=== PATIENT | male | born 1935 | race Two or more races ===

== ENCOUNTER → 2017-06-08 | Outpatient (CLI) | payer OTHER ==
--- NOTE | 2017-06-08 12:40 | REP ---
Bilateral lower extremity deep vein duplex ultrasound and bilateral lower extremity venous reflux ultrasound: Bilateral lower extremity deep vein duplex ultrasound: The deep veins demonstrate normal compression, normal Doppler color flow and normal Doppler waveforms with respiration augmentation at multiple levels from the popliteal veins to the common femoral veins. Impression: There is no deep vein thrombus on the right on the left. The deep veins lower extremity reflux analysis: Right lower extremity: There is reflux in the common femoral vein, greater saphenous vein/femoral vein junction, mid greater saphenous vein and in the deep veins at the proximal, mid and distal superficial femoral vein. popliteal There is no reflux in the anterior accessory greater saphenous vein, greater saphenous vein at the knee, popliteal vein or lesser saphenous vein. Left lower extremity: There is reflux in the common femoral vein, greater saphenous vein/femoral vein junction, and proximal mid and distal superficial femoral vein. There is no reflux in the anterior accessory greater saphenous vein, greater saphenous vein at the mid thigh, greater saphenous vein at the knee, popliteal vein or lesser saphenous vein. Signed by Vj Paul MD 06/08/2017 12:31 P
== END ==
LOC: M RAD 10:17
PROVIDERS: ATTEND Surgery
DX: I87.311 Chronic venous hypertension (idiopathic) with ulcer of right lower extremity (principal)

== ENCOUNTER 2018-09-30 23:32 | Inpatient (IN) | payer MEDICARE, OTHER ==
[~2018-09-30] VITALS: Ht 165.1 cm; Wt 111.8 kg
[2018-09-30] MEDS ORDERED: SIMB1SUS OU (23:59)
[2018-09-30] MEDS ORDERED: CO Q100C10 PO (23:59)
[2018-09-30] MEDS ORDERED: NATU400T PO (23:59)
[2018-09-30] MEDS ORDERED: ATEN25TA PO (23:59)
[2018-09-30] MEDS ORDERED: VITA200048 PO (23:59)
[2018-09-30] MEDS ORDERED: TIMOXEOPD OU (23:59)
[2018-09-30] MEDS ORDERED: SPIR-10 PO (23:59)
[2018-09-30] MEDS ORDERED: IRBESAR/HCTZ (23:59)
[2018-09-30] MEDS ORDERED: BIMA01SOL OU (23:59)
[2018-10-01] MEDS ORDERED: IRBE300T12 PO (00:46)
[2018-10-01] MEDS ORDERED: IPRATROPIUM 0.5MG/ALBUTEROL 2.5MG INH SOL UD 3ML (DUONEB)(J7620) NEB ONE (01:15)
--- NOTE | 2018-10-01 01:25 | REPVR ---
EXAM: CT Head Without Contrast EXAM DATE/TIME: 10/01/2018 1:06 AM CLINICAL HISTORY: 83 years old, male; Signs and symptoms; Other: Syncope TECHNIQUE: Axial computed tomography images of the head/brain without contrast. All CT scans at this facility use at least one of these dose optimization techniques: automated exposure control; mA and/or kV adjustment per patient size (includes targeted exams where dose is matched to clinical indication); or iterative reconstruction. COMPARISON: No relevant prior studies available. FINDINGS: Brain: Subtle, patchy areas of hypoattenuation in the periventricular and subcortical white matter, nonspecific but suggestive of mild chronic small vessel ischemic disease. No CT evidence of acute intracranial hemorrhage or acute territorial infarction. No significant mass effect or midline shift. Basal cisterns patent. Ventricles: Prominence of the cortical sulci, cisterns and ventricular system, consistent with cerebral and cerebellar volume loss. Bones/joints: No acute osseous abnormality. Sinuses: Mild ethmoid mucosal thickening. Mastoid air cells: Grossly unremarkable. Soft tissues: Left high frontal scalp lipoma. Vasculature: Calcific atherosclerotic disease in the cavernous internal carotid arteries, as well as the vertebro-basilar system. IMPRESSION: 1. No CT evidence of acute intracranial pathology. 2. Additional findings, as above. Electronically signed by: Rambo Robbins On 10/01/2018 01:25:29 AM
[2018-10-01 01:35] LABS: ABG BASE EXCESS -0.8 (-2.0-2.0); ABG HCO3 27.1 MEQ/L (22.0-26.0); ABG O2 SATURATION 99.5 % (95.0-99.0); ABG PARTIAL PRESSURE CO2 59.2 mmHg (35.0-45.0); ABG PARTIAL PRESSURE O2 276.3 mmHg (75.0-100.0); ABG STANDARD HCO3 23.9 MEQ/L (22.0-26.0); ABG TOTAL CO2 28.9 MEQ/L (23.0-31.0); ABG pH (ARTERIAL) 7.279 UNITS (7.350-7.450)
[2018-10-01 01:39] LABS: BASO # 0.1 10^3/uL (0.0-0.2); BASO % 0.6 % (0.0-1.0); EOS # 0.1 10^3/uL (0.0-0.50); EOS % 0.8 % (0.0-3.0); HEMATOCRIT 39.6 % (42.0-52.0); HEMOGLOBIN 13.4 g/dl (13.5-17.5); LYMPH # 1.1 10^3/uL (1.5-4.5); LYMPH % 12.6 % (24.0-44.0); MEAN CORPUSCULAR HEMOGLOBIN 34.5 pg (27.0-33.0); MEAN CORPUSCULAR HGB CONC 33.8 g/dl (32.0-36.5); MEAN CORPUSCULAR VOLUME 102.1 fl (80.0-96.0); MONO # 0.7 10^3/uL (0.0-0.8); MONO % 7.6 % (0.0-5.0); NEUTROPHILS # 6.7 10^3/uL (1.8-7.7); NEUTROPHILS % 77.9 % (36.0-66.0); PLATELET COUNT, AUTOMATED 209 10^3/uL (150-450); RED BLOOD COUNT 3.88 10^6/uL (4.30-6.10); WHITE BLOOD COUNT 8.6 10^3/uL (4.0-10.0)
[2018-10-01 02:09] LABS: INFLUENZA A AMPLIFICATION NEGATIVE (NEGATIVE); INFLUENZA B AMPLIFICATION NEGATIVE (NEGATIVE)
[2018-10-01 03:29] LABS: CALCIUM LEVEL 9.1 MG/DL (8.8-10.2); CREATININE FOR GFR 1.29 MG/DL (0.70-1.30); GLOMERULAR FILTRATION RATE 56.4 (>35); MB/CK RELATIVE INDEX 2.25 (< OR =4); POTASSIUM SERUM 4.6 MEQ/L (3.5-5.1); THYROID STIMULATING HORMONE 1.86 uIU/ML (0.358-3.740); TROPONIN I 0.04 NG/ML (< 0.10)
[2018-10-01 03:44] LABS: ABG BASE EXCESS -2.3 (-2.0-2.0); ABG HCO3 24.5 MEQ/L (22.0-26.0); ABG O2 SATURATION 96.3 % (95.0-99.0); ABG PARTIAL PRESSURE CO2 50.2 mmHg (35.0-45.0); ABG PARTIAL PRESSURE O2 92.1 mmHg (75.0-100.0); ABG STANDARD HCO3 22.6 MEQ/L (22.0-26.0); ABG TOTAL CO2 26.1 MEQ/L (23.0-31.0); ABG pH (ARTERIAL) 7.307 UNITS (7.350-7.450)
[2018-10-01] MEDS ORDERED: ISOVUE-370 76% 100ML VIAL (Q9967) As Ordered ONE (04:13)
--- NOTE | 2018-10-01 05:07 | REPVR ---
EXAM: CT Chest With Contrast EXAM DATE/TIME: 10/01/2018 4:23 AM CLINICAL HISTORY: 83 years old, male; Pain; Chest pain; Additional info: Hypoxia TECHNIQUE: Axial computed tomography images of the chest with intravenous contrast. All CT scans at this facility use at least one of these dose optimization techniques: automated exposure control; mA and/or kV adjustment per patient size (includes targeted exams where dose is matched to clinical indication); or iterative reconstruction. Coronal and sagittal reformatted images were created and reviewed. MIP reconstructed images were created and reviewed. CONTRAST: 75 ml of iso 370 administered intravenously. COMPARISON: CR Chest, 2 view PA, Lat 10/01/2018 1:03 AM FINDINGS: Lungs: Bronchial wall thickening and mucous plugging are seen within the bilateral lower lobes. Lung volumes are relatively shallow, and appearance of the airways seems to indicate imaging during expiration. There is mild groundglass opacity in the more dependent portions of the upper lobes bilaterally and there is volume loss, ground glass opacity, and small amounts of consolidation in the bilateral lower lobes. Pleural space: There are no pleural effusions present. No pneumothorax is seen. Heart: There is mild cardiomegaly. Mediastinum: There is retained fluid within the esophagus. Pulmonary arteries: The pulmonary arteries demonstrate moderate central enlargement, consistent with moderate pulmonary hypertension. The pulmonary trunk measures 4.2 cm. No filling defects are seen to indicate an acute pulmonary embolism. Aorta: The aorta demonstrates moderate atherosclerotic calcification. The ascending aorta is mildly dilated at 4.1 cm. Lymph nodes: No lymphadenopathy is seen. Bones/joints: Advanced degenerative changes both shoulders are noted. Degenerative endplate changes are seen at multiple levels in the visualized spine. No suspicious osseous lesions. No acute fractures or dislocations. Soft tissues: Unremarkable. Liver: There is a 3.3 cm cyst in the right lobe of the liver. Peripheral calcifications are seen in the right lobe of the liver. Gallbladder and bile ducts: The gallbladder is normal with no stones or biliary ductal dilation. Pancreas: There is diffuse, benign fatty infiltration of the pancreas. Spleen: The spleen is normal. Kidneys and ureters: There is a 3.0 cm lesion in the right kidney which is homogeneous in density, measuring slightly higher density than simple fluid at 30 Hounsfield units. This is likely a proteinaceous cyst. Moderate diffuse thinning of the renal parenchyma is seen, indicating atrophy. IMPRESSION: 1. Bronchial wall thickening and mucous plugging in the bilateral lower lobes. Volume loss, ground glass opacity and mild patchy consolidation in the bilateral lower lobes probably due to a combination of airway inflammation, pneumonia, and atelectasis. 2. Enlargement of the ascending aorta, measuring 4.1 cm. 3. Enlargement of central pulmonary arteries, consistent with pulmonary hypertension. 4. 3.0 cm lesion in the right kidney measuring higher density than simple fluid but is homogeneous and probably a proteinaceous cyst. No followup recommended. Electronically signed by: Shasta Rasheed On 10/01/2018 05:06:58 AM
[2018-10-01] MEDS ORDERED: FUROSEMIDE 40 MG/4 ML VIAL (J1940) IV ONE (05:15)
[2018-10-01] MEDS ORDERED: cefTRIAXone SOD 1 GM in D5W MINI-BAG PLUS 50 ML IV ONE (05:30)
[2018-10-01] MEDS ORDERED: AZITHROMYCIN INJ 500 MG, VIAL MATE ADAPTER 1 EACH in D5W 250 ML IV ONE (05:30)
[2018-10-01] MEDS ORDERED: FISH7.5C PO (06:09)
[2018-10-01] MEDS ORDERED: ACETAMINOPHEN TAB 650MG DOSE (2X325MG) PO PRN (06:15)
--- NOTE | 2018-10-01 06:49 | HPEPDOC ---
[facility] Medical History & Physical Date of Admission Oct 01, 2018 Other Provider Admitting/dictating: Risa Chiang M.D. Attending Physician: ASHLEY SHEARER MD History and Physical CHIEF COMPLAINT: Generalized weakness, Feeling unwell x 1 week, cough with shorthness of breath x 1week HISTORY OF PRESENT ILLNESS: Patient is an 83-year-old morbidly obese man with medical history significant for glaucoma, hypertension, and arthritis. He had remained in his usual state of health until about a week ago developed cough productive of yellowish sputum, non-concerning. However, he noticed progressive shortness of breath, now worsened to the point of orthopnea. There is also associated feeling of unwell for the past 1 week culminating in mechanical fall twice yesterday morning without any mention of loss of consciousness. No prior warning signs of dizziness, near syncope or syncope. He reports that his cough has persisted necessitating the need for further medical evaluation. He refers subjective fever with chills. He denies any recent sick contacts. No nausea, vomiting, no associated chest pain or palpitations. No change in his bowel or urinary habits. Patient was evaluated with a chest x-ray which reveals bilateral lower lobe infiltrates. A CT scan consistent with pneumonia. Patient received IV Lasix 40 mg and hospitalist called to continue patient care. PAST MEDICAL HISTORY: Per HPI PAST SURGICAL HISTORY: 1. Broken wrist. 2. Hernia repair. 3. Knee replacement in 2000. SOCIAL HISTORY: Denies smoking. He quit smoking about 12 years. Denies illicit drug use. Occasional alcohol indulgence. FAMILY HISTORY: Father: Mother: at age 99, was diagnosed with psychiatric conditions Siblings: One brother diagnosed with hypertension Children: One son and one daughter. Daughter is diagnosed with hypertension ALLERGIES: Please see below. REVIEW OF SYSTEMS: No fever, no chills. No weight loss. No hemoptysis. No chest pain, no palpitations. No change in bowel or urinary habits. He refers cough productive of yellowish sputum and shortness of breath. Other systems reviewed, negative. 14 point review of system was done. HOME MEDICATIONS: Please see below. PHYSICAL EXAMINATION: VITAL SIGNS: Temperature 98.3, pulse 64, respiratory rate 20, blood pressure 134/69, pulse oximetry 98% on 2L O2. GENERAL APPEARANCE: Elderly man, lying calmly in bed, not in any apparent distress. He is not pale, anicteric and afebrile HEENT: Atraumatic. Neck: Supple. LUNGS: Mild expiratory wheeze on auscultation bilaterally. CARDIOVASCULAR: S1 and 2 heard, no murmurs, rubs or gallops. ABDOMEN: Obese, soft, not tender, not distended. Bowel sounds normoactive. MUSCULOSKELETAL: Apparently within normal limits. EXTREMITIES: No pedal edema, 2+ bilateral pedal pulses noted. NEUROLOGICAL: Awake, alert, oriented 3. PSYCHIATRIC: Normal affect LABORATORY DATA: See below. IMAGING: CT head without contrast: No CT evidence of acute intracranial pathology. There is calcific atherosclerotic disease in the cavernous internal carotid arteries, as well as the vertebro- basilar system. Chest x-ray: Bilateral lower lobe (infiltrates might take). CT chest: Bronchial wall thickening and mucous plugging in the bilateral lower lobes volume loss ground glass opacity and mild patchy consolidation in the bilateral lower lobes, probably due to a combination of airway inflammation pneumonia and atelectasis. Enlargement of the ascending aorta measuring 4.1 cm. Enlargement of central pulmonary arteries consistent with pulmonary hypertension. 3 cm lesion in the right kidney measuring higher density than simple fluid, but is homogeneous, probably proteinaceous cyst. No follow-up recommended. EKG: Normal sinus rhythm, no acute ST or T-wave changes. Possible first-degree AV block. MICROBIOLOGY: Please see below. ASSESSMENT: 83 year old man with history of CHF, glaucoma, arthritis, comes in with a week a week's duration of feeling of unwell as well as productive cough with shortness of breath. History significant for a fall without loss of consciousness yesterday morning. Physical exam is unremarkable, labs unremarkable. However, imaging consistent findings with pneumonia. DIAGNOSES: 1. Acute hypoxic respiratory failure. 2. Pneumonia. 3. Physical deconditioning. SECONDARY DIAGNOSIS: CHF . PLAN: 1. I will admit patient to the PCU under care of Dr. Shearer 2. Shortness of breath/Acute hypoxic respiratory failure, likely secondary to pneumonia. I'll order ceftriaxone 1 mg stat IV and continue this daily, Zithromax 500 mg IV at least for 24hours change to po antibiotics and will continue Zithromax by mouth 250 mg daily for the next 4 days. Will continue O2 supplementation. DuoNeb nebulizations when necessary shortness of breath. Patient noted with expiratory wheezing on exam, Will give prednisone 20 mg daily. 3. CHF appears stable at this time. repeat BNP 4. Physical deconditioning: PT eval and treatment as tolerated. 5. Follow daily BMP/CBC. 6. I will order echocardiogram to determine his ejection fraction with this admission. 7. Will resume outpatient medications. He may also benefit from adding expectorant to his regimen while on admission. 8. GI prophylaxis. Pantoprazole. 9. DVT prophylaxis subcutaneous heparin 5000 international units every 12 hours 10. I will screen for diabetes in this morbidly obese man. 11. Further management will be per patient's clinical course. Vital Signs Vital Signs Date Time Temp Pulse Resp B/P (MAP) Pulse Ox O2 Delivery O2 Flow Rate FiO2 10/01/18 04:33 98.3 10/01/18 04:32 64 10/01/18 04:17 20 98 Nasal Cannula 10/01/18 03:01 180/82 (114) 10/01/18 01:32 2.0 Laboratory Data Labs 24H Laboratory Tests 2 10/01/18 01:15: Immature Granulocyte % (Auto) 0.5, White Blood Count 8.6, Red Blood Count 3.88L, Hemoglobin 13.4L, Hematocrit 39.6L, Mean Corpuscular Volume 102.1H, Mean Corpuscular Hemoglobin 34.5H, Mean Corpuscular Hemoglobin Concent 33.8, Red Cell Distribution Width 13.1, Platelet Count 209, Neutrophils (%) (Auto) 77.9H, Lymphocytes (%) (Auto) 12.6L, Monocytes (%) (Auto) 7.6H, Eosinophils (%) (Auto) 0.8, Basophils (%) (Auto) 0.6, Neutrophils # (Auto) 6.7, Lymphocytes # (Auto) 1.1L, Monocytes # (Auto) 0.7, Eosinophils # (Auto) 0.1, Basophils # (Auto) 0.1, Nucleated Red Blood Cells % (auto) 0.0, Anion Gap 7L, Glomerular Filtration Rate 56.4, Lactic Acid Level 0.8, Blood Urea Nitrogen 32H, Creatinine 1.29, Sodium Level 147H, Potassium Level 4.6, Chloride Level 112H, Carbon Dioxide Level 28, Calcium Level 9.1, Total Creatine Kinase 222, Creatine Kinase MB 5.0H, Creatine Kinase MB Relative Index 2.25, Troponin I 0.04, DC-Gen-J-Type Natriuretic Peptide 2397H, Thyroid Stimulating Hormone (TSH) 1.860, Influenza Type A (RT- PCR) NEGATIVE, Influenza Type B (RT-PCR) NEGATIVE 10/01/18 01:20: Blood Gas Bicarbonate Standard 23.9, Arterial Blood pH 7.279L, Arterial Blood Partial Pressure CO2 59.2H, Arterial Blood Partial Pressure O2 276.3H, Arterial Blood Total CO2 28.9, Arterial Blood HCO3 27.1H, Arterial Blood Base Excess - 0.8, Arterial Blood Oxygen Saturation 99.5H 10/01/18 03:27: Blood Gas Bicarbonate Standard 22.6, Arterial Blood pH 7.307L, Arterial Blood Partial Pressure CO2 50.2H, Arterial Blood Partial Pressure O2 92.1, Arterial Blood Total CO2 26.1, Arterial Blood HCO3 24.5, Arterial Blood Base Excess - 2.3L, Arterial Blood Oxygen Saturation 96.3 CBC/BMP Laboratory Tests 10/01/18 01:15 Red Blood Count 3.88 L, Mean Corpuscular Volume 102.1 H, Mean Corpuscular Hemog lobin 34.5 H, Mean Corpuscular Hemoglobin Concent 33.8, Red Cell Distribution Width 13.1, Neutrophils (%) (Auto) 77.9 H, Lymphocytes (%) (Auto) 12.6 L, Monocytes (%) (Auto) 7.6 H, Eosinophils (%) (Auto) 0.8, Basophils (%) (Auto) 0.6, Neutrophils # (Auto) 6.7, Lymphocytes # (Auto) 1.1 L, Monocytes # (Auto) 0.7, Eosinophils # (Auto) 0.1, Basophils # (Auto) 0.1, Calcium Level 9.1, Total Creatine Kinase 222 Home Medications Scheduled (Simbrinza 1-0.2 %) 1 Yane Yane, 1 DROP OU BID (Co Q 10) 100 Mg Cap, 100 MG PO DAILY (Irbesartan/Hydrochlorothi 300-12.5 mg) 1 Tab Tab, 1 TAB PO DAILY Alpha Tocopheryl Acid Succinat (Vitamin E) 400 Unit Tab, 400 UNIT PO DAILY Atenolol (Atenolol) 25 Mg Tab, 25 MG PO DAILY Bimatoprost (Lumigan) 50 Drop/2.5 Ml Zofia, 1 DROP OU QHS [place] 3 Polyunsat Fatty Acids (Fish Oil 1000 mg) 1 Cap Cap, 1 CAP PO DAILY Spironolactone (Spironolactone) 25 Mg Tab, 25 MG PO DAILY Timolol Maleate (Timolol Maleate 0.25% Opth GFS) 100 Drop/5 Ml Zofia, 1 DROP OU QAM Allergies Coded Allergies: Flu Virus Vaccine (Verified Allergy, Unknown, 09/30/18) RISA CHIANG MD Oct 01, 2018 06:03
[2018-10-01] MEDS ORDERED: guaiFENesin SYRUP 200 MG/10 ML UDC PO PRN (07:00)
--- NOTE | 2018-10-01 07:32 | REP ---
Clinical: Cough. Technique: PA and lateral. Comparison: None. Findings: Cardiomegaly is appreciated. Mild basilar atelectasis and possible small pleural effusion cannot be excluded. No pneumothorax. Skeletal structures demonstrate degenerative changes primarily involving the thoracic spine and bilateral shoulders. Atherosclerotic disease to the thoracic aorta noted. Impression: Cardiomegaly and mild bibasilar atelectasis along with possible small left pleural effusion. Electronically Signed by Dean Lombardi MD 10/01/2018 07:24 A
[2018-10-01] MEDS: PANTOPRAZOLE 40MG TAB (PROTONIX) PO SCH (08:22)
[2018-10-01] MEDS: HEPARIN SOD (PORCINE) 5000 UNITS/ML VIAL SQ SCH ×2 (08:22→21:02)
[2018-10-01] MEDS ORDERED: predniSONE 20 MG TAB PO SCH (09:00)
[2018-10-01] MEDS ORDERED: ATENOLOL 25 MG TAB PO SCH (09:00)
[2018-10-01] MEDS ORDERED: TIMOLOL MALEATE 0.25% OPHTH SOLN 5 ML OU SCH (09:00)
[2018-10-01] MEDS ORDERED: ATROPINE SULF 1MG/10ML SYRINGE (J0461) IV PRN ×2 (13:45→15:30)
--- NOTE | 2018-10-01 15:30 | IPNPDOC ---
Text Note Date of Service The patient was seen on 10/01/18. NOTE Patient seen and examined at the bedside earlier today. Called by the bedside nurse as the patient was noted to have episodes of symptomatic bradycardia (HR in 30s) this afternoon. His HR is currently in the 50s. Original EKG revealed 1st degree AV block, HR of 61. Repeat EKG ordered. This is likely 2/2 to the patient taking Atenolol, which has been discontinued. Atropine ordered, 0.5mg IV q5mp for up to 3mg. I have asked the nurse to place transcutaneous pacer pads on the patient and we will transfer the patient to ICU at this time. We will cont to monitor the patient on Telemetry in the ICU. If his episodes of symptomatic bradycardia persist, we will reach out to Cardiology for further evaluation/and need for more definitive pacing. VS,Fishbone, I+O VS, Fishbone, I+O Laboratory Tests 10/01/18 01:15 Red Blood Count 3.88 L, Mean Corpuscular Volume 102.1 H, Mean Corpuscular Hemoglobin 34.5 H, Mean Corpuscular Hemoglobin Concent 33.8, Red Cell Distribution Width 13.1, Neutrophils (%) (Auto) 77.9 H, Lymphocytes (%) (Auto) 12.6 L, Monocytes (%) (Auto) 7.6 H, Eosinophils (%) (Auto) 0.8, Basophils (%) (Auto) 0.6, Neutrophils # (Auto) 6.7, Lymphocytes # (Auto) 1.1 L, Monocytes # (Auto) 0.7, Eosinophils # (Auto) 0.1, Basophils # (Auto) 0.1, Calcium Level 9.1, Total Creatine Kinase 222 Vital Signs Date Time Temp Pulse Resp B/P (MAP) Pulse Ox O2 Delivery O2 Flow Rate FiO2 10/01/18 13:01 144/65 (91) 10/01/18 13:00 55 96 Nasal Cannula 2.0 10/01/18 12:40 98.8 20 ASHLEY SHEARER MD Oct 01, 2018 15:30
[2018-10-01 16:11] LABS: HEMATOCRIT 40.4 % (42.0-52.0); HEMOGLOBIN 13.5 g/dl (13.5-17.5); MEAN CORPUSCULAR HEMOGLOBIN 34.5 pg (27.0-33.0); MEAN CORPUSCULAR HGB CONC 33.4 g/dl (32.0-36.5); MEAN CORPUSCULAR VOLUME 103.3 fl (80.0-96.0); PLATELET COUNT, AUTOMATED 222 10^3/uL (150-450); RED BLOOD COUNT 3.91 10^6/uL (4.30-6.10); WHITE BLOOD COUNT 8.2 10^3/uL (4.0-10.0)
[2018-10-01 16:32] LABS: CREATININE FOR GFR 1.4 MG/DL (0.70-1.30); GLOMERULAR FILTRATION RATE 51.3 (>35); MAGNESIUM LEVEL 2.3 MG/DL (1.8-2.4); POTASSIUM SERUM 4.7 MEQ/L (3.5-5.1)
[2018-10-01 17:26] VITALS: BP 112/70
[2018-10-01 20:00] VITALS: BP 169/79
[2018-10-01] MEDS ORDERED: **NOTE PATIENT COMMENT** MISC XX SCH (21:00)
[2018-10-01] MEDS: SIMBRINZA OU SCH (21:02)
[2018-10-01] MEDS: LATANOPROST 0.005% OPHTH SOLN 2.5 ML OU SCH (21:03)
[2018-10-01 22:00] VITALS: BP 152/72
[2018-10-02] VITALS (9 sets, daily range): BP systolic 121–170; BP diastolic 58–77
[2018-10-02 04:55] LABS: HEMATOCRIT 38.6 % (42.0-52.0); HEMOGLOBIN 12.9 g/dl (13.5-17.5); MEAN CORPUSCULAR HEMOGLOBIN 33.9 pg (27.0-33.0); MEAN CORPUSCULAR HGB CONC 33.4 g/dl (32.0-36.5); MEAN CORPUSCULAR VOLUME 101.6 fl (80.0-96.0); PLATELET COUNT, AUTOMATED 216 10^3/uL (150-450); WHITE BLOOD COUNT 9.2 10^3/uL (4.0-10.0)
[2018-10-02 05:17] LABS: CALCIUM LEVEL 9.1 MG/DL (8.8-10.2); CREATININE FOR GFR 1.26 MG/DL (0.70-1.30); GLOMERULAR FILTRATION RATE 57.9 (>35); POTASSIUM SERUM 4.4 MEQ/L (3.5-5.1)
[2018-10-02] MEDS: cefTRIAXone SOD 1 GM in D5W MINI-BAG PLUS 50 ML IV SCH (06:09)
[2018-10-02] MEDS: PANTOPRAZOLE 40MG TAB (PROTONIX) PO SCH (08:53)
[2018-10-02] MEDS: AZITHROMYCIN 250 MG TAB PO SCH (08:53)
[2018-10-02] MEDS: SPIRONOLACTONE 25 MG TAB PO SCH (08:53)
[2018-10-02] MEDS: HEPARIN SOD (PORCINE) 5000 UNITS/ML VIAL SQ SCH ×2 (08:53→20:50)
[2018-10-02] MEDS: SIMBRINZA OU SCH ×2 (08:54→20:50)
[2018-10-02] MEDS: amLODIPine 5 MG TAB PO SCH (11:40)
[2018-10-02] MEDS: guaiFENesin ER 600 MG TAB PO SCH ×2 (13:51→20:50)
--- NOTE | 2018-10-02 13:56 | IPN ---
DATE: 10/02/2018 SUBJECTIVE: Patient is seen and examined in the room today. Patient denies any chest pain, palpitation. Denies any fever or chills. The patient was noted to have a recurrence of bradycardia yesterday night. Average heart rate was around 40s. Denies any other acute complaints. OBJECTIVE: VITAL SIGNS: Temperature 98.4, pulse 46, respiration 20, blood pressure 153/66, pulse ox 99% on 2 liters nasal cannula. GENERAL: Fatigued. No sign of acute stress. Alert and awake in appearance. HEENT: Normocephalic, atraumatic. Extraocular muscles grossly intact. CARDIOVASCULAR: Bradycardic, Positive S1, S2. LUNGS: Clear to auscultation bilaterally. ABDOMEN: Soft, nontender, nondistended. Bowel sounds present. EXTREMITIES: No peripheral edema. LABORATORY DATA: WBC 9.3, hemoglobin 12.9, hematocrit 38.6, platelet count 216. Sodium 145, potassium 4.4, chloride 110, carbon dioxide 31, BUN 36, creatinine 1.26, GFR 57.9, fasting glucose 100, calcium 9.1. ASSESSMENT/PLAN: 1. Symptomatic bradycardia: The patient is monitored in the intensive care unit (ICU). The lowest heart rate was around high 30s. Later patient maintained an average heart rate around 50s. Yesterday patient required 1000 IV atropine for symptomatic bradycardia. Atenolol has been discontinued, the last dose of atenolol was on October 01, 2018 in the morning. The patient Timolol eye drops were also discontinued. The patient will be monitored in the progressive care unit (PCU). 2. Acute hypoxia hypercapnic respiratory failure: Patient came in with chief complaint of not feeling well and complained of shortness of breath. Arterial blood gases (ABG) from admission were reviewed. Patient is hypercapnic hypoxic respiratory failure. CT of the chest was performed which demonstrated mucous plugging in the bilateral lower lobe. Mild patchy infiltrate. Suspect complication of airway inflammation pneumonia, atelectasis. Incentive spirometry ordered. Will follow with sputum cultures. The patient did complain of a yellow sputum production which is not normal for him. The patient is on empiric antibiotics. Currently we are treating patient for his bradycardia. 3. Hypertension: On Norvasc, spironolactone. 4. Deep venous thrombosis (DVT): Prophylaxis on heparin. [facility]
--- NOTE | 2018-10-02 17:10 | ECHO ---
DATE OF PROCEDURE: 10/02/2018 REFERRING PHYSICIAN: Paul Jonas MD INDICATION: Dyspnea. HEIGHT: 165 cm WEIGHT: 110 kg DIMENSIONS: IVS: 1.0 LV: 5.7 LVPW: 1.1 LA: 4.4 Aorta: 3.7 IVC: 1.9 Left atrial volume index: 38 Mitral E wave velocity: 139, A wave: 127 E prime septal: 7.8 E prime lateral: 6.1 FINDINGS: The study is of fair technical quality. Left ventricle is borderline enlarged but has grossly normal LV systolic function. I do not appreciate any segmental wall motion abnormalities based on limited views. I estimate ejection fraction (EF) around 65-70%. Right ventricle does not appear grossly enlarged. Left atrium is moderately enlarged. Right atrium was poorly seen, but appears grossly normal. Aortic valve is mildly sclerotic, but mobility is preserved. There are also mild degenerative abnormalities of mitral valve with mitral annular calcifications. Tricuspid and pulmonic valves appear normal. No pericardial effusion is noted. Inferior vena cava is in upper limits of normal size. Aortic root is normal. Aortic arch and abdominal aorta were not seen. Doppler interrogation reveals no aortic stenosis and no insufficiency. There is mild mitral and mild tricuspid insufficiency. Calculated pulmonary artery pressure is at minimum in high 30s corresponding to mild pulmonary hypertension. Mild pulmonic insufficiency is also present. Mitral inflow pattern and tissue Doppler imaging of mitral annulus reveal grade 2 diastolic dysfunction. CONCLUSIONS 1. Study is of fair technical quality. 2. Borderline dilated left ventricle with normal LV systolic function and grade 2 diastolic dysfunction. 3. No hemodynamically significant valvular disease. 4. Suggestive of normal central venous pressure and at least mild pulmonary hypertension. COMMENTS: Subacute bacterial endocarditis (SBE) prophylaxis is not recommended.
--- NOTE | 2018-10-02 20:49 | ECGEPIP ---
Stationary ECG Study [facility] - ED Test Date: 2018-10-01 Pat Name: CONCHA KHAN Department: Room: [place] [address] Gender: M Security System Installer: hannah : 1935 Requested By: KERLINE Silva Order Number: [id number] Reading MD: Karlo Fernandez Measurements Intervals [place] Rate: 61 P: -83 HI: 258 QRS: -41 QRSD: 113 T: 22 QT: 408 QTc: 411 Interpretive Statements SINUS RHYTHM WITH FIRST DEGREE AV BLOCK MARKED LEFT AXIS DEVIATION VOLTAGE CRITERIA FOR LVH POSSIBLE LATERAL MYOCARDIAL INFARCTION, OF INDETERMINATE AGE NO PRIORS FOR COMPARISON Electronically Signed On 10-02-2018 20:49:08 EST by Karlo Fernandez
[2018-10-02] MEDS: LATANOPROST 0.005% OPHTH SOLN 2.5 ML OU SCH (20:50)
[2018-10-03] VITALS (8 sets, daily range): BP systolic 120–171; BP diastolic 58–77
--- NOTE | 2018-10-03 00:33 | ECGEPIP ---
Stationary ECG Study [facility] Test Date: 2018-10-01 Pat Name: CONCHA KHAN Department: Room: [place] [address] Gender: M Manager Retirement: joanna GIBSONB: 1935 Requested By: ASHLEY SHEARER Order Number: [id number] Reading MD: Sherif Oro Measurements Intervals [place] Rate: 55 P: 2 LA: 283 QRS: -43 QRSD: 95 T: 36 QT: 438 QTc: 420 Interpretive Statements SINUS BRADYCARDIA WITH FIRST DEGREE AV BLOCK MARKED LEFT AXIS DEVIATION/LEFT ANTERIOR HEMIBLOCK VOLTAGE CRITERIA FOR LVH MOST RECENT TRACING ON 10/01/2018 AT 12:36:07 A.M.. NO REMARKABLE CHANGES BUT HEART RATE IS NOW SLOWER Electronically Signed On 10-03-2018 0:33:31 EST by Sherif Oro
[2018-10-03 04:51] LABS: HEMATOCRIT 38.5 % (42.0-52.0); HEMOGLOBIN 12.4 g/dl (13.5-17.5); MEAN CORPUSCULAR HEMOGLOBIN 33.3 pg (27.0-33.0); MEAN CORPUSCULAR HGB CONC 32.2 g/dl (32.0-36.5); MEAN CORPUSCULAR VOLUME 103.5 fl (80.0-96.0); PLATELET COUNT, AUTOMATED 185 10^3/uL (150-450); RED BLOOD COUNT 3.72 10^6/uL (4.30-6.10); WHITE BLOOD COUNT 7.2 10^3/uL (4.0-10.0)
[2018-10-03 05:11] LABS: BLOOD UREA NITROGEN 35 MG/DL (7-18); CALCIUM LEVEL 8.8 MG/DL (8.8-10.2); CARBON DIOXIDE LEVEL 30 MEQ/L (21-32); CHLORIDE LEVEL 111 MEQ/L (98-107); CREATININE FOR GFR 1.15 MG/DL (0.70-1.30); GLOMERULAR FILTRATION RATE > 60.0 (>35); GLUCOSE, FASTING 94 MG/DL (70-100); POTASSIUM SERUM 4.5 MEQ/L (3.5-5.1); SODIUM LEVEL 147 MEQ/L (136-145)
[2018-10-03] MEDS: cefTRIAXone SOD 1 GM in D5W MINI-BAG PLUS 50 ML IV SCH (05:56)
[2018-10-03] MEDS: SPIRONOLACTONE 25 MG TAB PO SCH (08:57)
[2018-10-03] MEDS: guaiFENesin ER 600 MG TAB PO SCH ×2 (08:57→20:02)
[2018-10-03] MEDS: PANTOPRAZOLE 40MG TAB (PROTONIX) PO SCH (08:57)
[2018-10-03] MEDS: amLODIPine 5 MG TAB PO SCH (08:57)
[2018-10-03] MEDS: SIMBRINZA OU SCH ×2 (08:58→20:02)
[2018-10-03] MEDS: AZITHROMYCIN 250 MG TAB PO SCH (08:58)
[2018-10-03] MEDS: HEPARIN SOD (PORCINE) 5000 UNITS/ML VIAL SQ SCH ×2 (08:58→20:02)
--- NOTE | 2018-10-03 18:33 | IPNPDOC ---
Text Note Date of Service The patient was seen on 10/03/18. NOTE SUBJECTIVE: Patient is seen and examined in the room today. Patient had episodes of bradycardias. Patient did not complain about any symptom. Denies any fever or chills. OBJECTIVE: VITAL SIGNS: Listed below. GENERAL: Fatigued. No sign of acute stress. Alert and awake in appearance. HEENT: Normocephalic, atraumatic. Extraocular muscles grossly intact. CARDIOVASCULAR: Bradycardic, Positive S1, S2. LUNGS: Clear to auscultation bilaterally. ABDOMEN: Soft, nontender, nondistended. Bowel sounds present. EXTREMITIES: No peripheral edema. LABORATORY DATA: Listed below. ASSESSMENT/PLAN: #. Symptomatic bradycardia: - Last dose of atenolol was on 10/01/18 8AM. Timolol eye drops were also discontinued. Patient continues having intermittent bradycardia. Patient also noted to have few seconds of grade 2 heart blocks. Suspect secondary to betablocker. Continue monitoring on telemetry. #. Acute hypoxia hypercapnic respiratory failure: - Arterial blood gases (ABG) from admission were reviewed. CT of the chest was performed which demonstrated mucous plugging in the bilateral lower lobe. Mild patchy infiltrate. Suspect complication of airway inflammation pneumonia, atelectasis. Trial of Mucinex. Incentive spirometry ordered. On Rocephin. Will follow with sputum cultures. #. Hypertension: On Norvasc, spironolactone. #. Deep venous thrombosis (DVT): Prophylaxis on heparin. VS,Fishbone, I+O VS, Fishbone, I+O Laboratory Tests 10/03/18 04:28 Red Blood Count 3.72 L, Mean Corpuscular Volume 103.5 H, Mean Corpuscular Hemoglobin 33.3 H, Mean Corpuscular Hemoglobin Concent 32.2, Red Cell Distributi on Width 13.0, Calcium Level 8.8 Vital Signs Date Time Temp Pulse Resp B/P (MAP) Pulse Ox O2 Delivery O2 Flow Rate FiO2 10/03/18 16:00 98.9 65 18 168/77 (107) 98 10/03/18 08:00 Room Air 10/03/18 06:00 2.0 I&O- Last 24 Hours up to 6 AM0 10/03/18 06:00 Intake Total 1470 ml Output Total 1090 ml Balance 380 ml YIFAN ADKINS DO Oct 03, 2018 18:33
[2018-10-03] MEDS: IPRATROPIUM 0.5MG/ALBUTEROL 2.5MG INH SOL UD 3ML (DUONEB)(J7620) NEB PRN (19:20)
[2018-10-03] MEDS: LATANOPROST 0.005% OPHTH SOLN 2.5 ML OU SCH (20:02)
[2018-10-04] VITALS: BP 163/77
[2018-10-04] MEDS: IPRATROPIUM 0.5MG/ALBUTEROL 2.5MG INH SOL UD 3ML (DUONEB)(J7620) NEB PRN (02:41)
[2018-10-04 04:00] VITALS: BP 182/78
[2018-10-04 04:42] LABS: HEMATOCRIT 35.3 % (42.0-52.0); MEAN CORPUSCULAR HEMOGLOBIN 33.8 pg (27.0-33.0); MEAN CORPUSCULAR VOLUME 99.4 fl (80.0-96.0); PLATELET COUNT, AUTOMATED 194 10^3/uL (150-450); RED BLOOD COUNT 3.55 10^6/uL (4.30-6.10); WHITE BLOOD COUNT 6.5 10^3/uL (4.0-10.0)
[2018-10-04] MEDS: amLODIPine 5 MG TAB PO SCH (05:02)
[2018-10-04] MEDS: cefTRIAXone SOD 1 GM in D5W MINI-BAG PLUS 50 ML IV SCH (05:02)
[2018-10-04 05:04] LABS: BLOOD UREA NITROGEN 26 MG/DL (7-18); CALCIUM LEVEL 8.7 MG/DL (8.8-10.2); CARBON DIOXIDE LEVEL 28 MEQ/L (21-32); CHLORIDE LEVEL 107 MEQ/L (98-107); CREATININE FOR GFR 1.12 MG/DL (0.70-1.30); GLOMERULAR FILTRATION RATE > 60.0 (>35); GLUCOSE, FASTING 111 MG/DL (70-100); MAGNESIUM LEVEL 1.8 MG/DL (1.8-2.4); POTASSIUM SERUM 4.1 MEQ/L (3.5-5.1); SODIUM LEVEL 142 MEQ/L (136-145)
[2018-10-04] MEDS ORDERED: amLODIPine 5 MG TAB PO ONE (07:30)
[2018-10-04 08:10] VITALS: BP 191/86
[2018-10-04] MEDS: SPIRONOLACTONE 25 MG TAB PO SCH (08:34)
[2018-10-04] MEDS: guaiFENesin ER 600 MG TAB PO SCH ×2 (08:35→20:37)
[2018-10-04] MEDS: AZITHROMYCIN 250 MG TAB PO SCH (08:35)
[2018-10-04] MEDS: SIMBRINZA OU SCH ×2 (08:35→20:38)
[2018-10-04] MEDS: PANTOPRAZOLE 40MG TAB (PROTONIX) PO SCH (08:35)
[2018-10-04] MEDS: HEPARIN SOD (PORCINE) 5000 UNITS/ML VIAL SQ SCH ×2 (08:39→20:38)
[2018-10-04 09:11] VITALS: BP 163/74
[2018-10-04 12:00] VITALS: BP 157/75
--- NOTE | 2018-10-04 16:21 | IPNPDOC ---
Text Note Date of Service The patient was seen on 10/04/18. NOTE SUBJECTIVE: Patient is seen and examined in the room today. Patient had poor sleep yesterday. Denies any chest pain, shortness of breath or weakness. Denies any fever or chills. OBJECTIVE: VITAL SIGNS: Listed below. GENERAL: Fatigued. No sign of acute stress. Alert and awake in appearance. HEENT: Normocephalic, atraumatic. Extraocular muscles grossly intact. CARDIOVASCULAR: regular rate. Positive S1, S2. LUNGS: Clear to auscultation bilaterally. ABDOMEN: Soft, nontender, nondistended. Bowel sounds present. EXTREMITIES: No peripheral edema. LABORATORY DATA: Listed below. ASSESSMENT/PLAN: #. Symptomatic bradycardia and second degree heart block: - Last dose of atenolol was on 10/01/18 8AM. Timolol eye drops were also discontinued. Patient is not symptomatic anymore. - Average heart rate has been improving. However, patient had few episode of second degree heart block. Discussed with cardiology. As long as patient does not have symptom for morbiz type 1, we will continue monitoring the patient. Patient also noted to have few seconds of Morbiz type 2. Suspect secondary to betablocker. Continue monitoring on telemetry. #. Acute hypoxia hypercapnic respiratory failure: - Arterial blood gases (ABG) from admission were reviewed. CT of the chest was performed which demonstrated mucous plugging in the bilateral lower lobe. Mild patchy infiltrate. Suspect complication of airway inflammation pneumonia, atelectasis. Trial of Mucinex. Incentive spirometry ordered. - Sputum culture result reviewed. Few Yeast like organism noted. Discontinue empirical antibiotics. #. Hypertension: On Norvasc, spironolactone. #. Deep venous thrombosis (DVT): Prophylaxis on heparin. VS,Fishbone, I+O VS, Fishbone, I+O Laboratory Tests 10/04/18 04:14 Red Blood Count 3.55 L, Mean Corpuscular Volume 99.4 H, Mean Corpuscular Hemoglobin 33.8 H, Mean Corpuscular Hemoglobin Concent 34.0, Red Cell Distribut ion Width 12.6, Calcium Level 8.7 L Vital Signs Date Time Temp Pulse Resp B/P (MAP) Pulse Ox O2 Delivery O2 Flow Rate FiO2 10/04/18 12:00 98.3 69 20 157/75 (102) 94 10/03/18 08:00 Room Air 10/03/18 06:00 2.0 I&O- Last 24 Hours up to 6 AM 10/04/18 06:00 Intake Total 1180 ml Output Total 1400 ml Balance -220 ml YIFAN ADKINS DO Oct 04, 2018 16:21
[2018-10-04 20:00] VITALS: BP 190/90
[2018-10-04] MEDS: LATANOPROST 0.005% OPHTH SOLN 2.5 ML OU SCH (20:38)
[2018-10-04] MEDS ORDERED: **hydrALAZINE HCL** 25 MG TAB PO ONE (21:00)
--- NOTE | 2018-10-04 23:10 | NOCOX ---
DATE OF PROCEDURE: Night of 10/03/2018 to the morning of 10/04/2018 ORDERING PROVIDER: Dr. Jonas Study is done on room air. Study of excellent technical quality. Mean oxygen saturation for the study 89.9%. Cyclic oxygen saturations were recorded with the lowest reliably recorded oxygen saturation as low as 42%. Pattern strongly suggests underlying obstructive sleep apnea (TOMY). IMPRESSION: Abnormal nocturnal oximetry in view of the above. Please correlate clinically.
[2018-10-05 00:35] VITALS: BP 178/84
[2018-10-05 04:00] VITALS: BP 172/88
[2018-10-05 05:19] LABS: HEMATOCRIT 38.2 % (42.0-52.0); MEAN CORPUSCULAR HEMOGLOBIN 34.6 pg (27.0-33.0); MEAN CORPUSCULAR VOLUME 101.6 fl (80.0-96.0); PLATELET COUNT, AUTOMATED 195 10^3/uL (150-450); RED BLOOD COUNT 3.76 10^6/uL (4.30-6.10); WHITE BLOOD COUNT 7.1 10^3/uL (4.0-10.0)
[2018-10-05 05:37] LABS: BLOOD UREA NITROGEN 23 MG/DL (7-18); CALCIUM LEVEL 9.2 MG/DL (8.8-10.2); CARBON DIOXIDE LEVEL 27 MEQ/L (21-32); CHLORIDE LEVEL 109 MEQ/L (98-107); CREATININE FOR GFR 1.02 MG/DL (0.70-1.30); GLOMERULAR FILTRATION RATE > 60.0 (>35); GLUCOSE, FASTING 112 MG/DL (70-100); MAGNESIUM LEVEL 2.2 MG/DL (1.8-2.4); POTASSIUM SERUM 4.3 MEQ/L (3.5-5.1); SODIUM LEVEL 141 MEQ/L (136-145)
[2018-10-05 08:00] VITALS: BP 130/78
[2018-10-05] MEDS ORDERED: MUCI600T37 PO (08:56)
[2018-10-05] MEDS ORDERED: AMLO10TA5 PO (08:56)
[2018-10-05] MEDS ORDERED: IRBESARTAN 150 MG TAB PO SCH (09:00)
[2018-10-05] MEDS: HEPARIN SOD (PORCINE) 5000 UNITS/ML VIAL SQ SCH (09:00)
[2018-10-05] MEDS ORDERED: amLODIPine 10 MG TAB PO SCH (09:00)
[2018-10-05] MEDS ORDERED: hydroCHLOROthiazide 12.5 MG CAPSULE PO SCH (09:00)
[2018-10-05] MEDS: PANTOPRAZOLE 40MG TAB (PROTONIX) PO SCH (09:07)
[2018-10-05] MEDS: guaiFENesin ER 600 MG TAB PO SCH (09:07)
[2018-10-05] MEDS: SPIRONOLACTONE 25 MG TAB PO SCH (09:07)
[2018-10-05 09:08] VITALS: BP 133/89
[2018-10-05] MEDS: SIMBRINZA OU SCH (09:08)
--- NOTE | 2018-10-08 20:05 | DSES ---
DATE OF ADMISSION: 10/01/2018 DATE OF DISCHARGE: 10/05/2018 CONSULTANTS: None. PRIMARY CARE PROVIDER: Patricia Garcia DISCHARGE DIAGNOSES: 1. Symptomatic bradycardia and second degree heart block. 2. Acute hypoxia and hypercapnic respiratory failure. 3. Hypertension. 4. Pulmonary hypertension. 5. Pneumonia. HOSPITAL COURSE: The patient is an 83-year-old male who presented to [facility] on 10/01/2018 with a complaint of generalized weakness with cough and shortness of breath. The patient was admitted under the hospitalist service for acute hypoxic respiratory failure and there was a suspicion that the patient may have a pneumonia. The patient was started on empiric antibiotics for coverage of community acquired pneumonia. The patient was monitored on telemetry. The patient was noted to have symptomatic bradycardia with a heart rate in the 30s. The patient's medication was reviewed. Beta kelley and hydroxyzine were discontinued. The patient was monitored on telemetry. Head Of English was contacted, recommend observation. The patient was found to have intermittent type II Mobitz heart block, however, the patient remained asymptomatic. With discontinuation of the beta kelley, the patient's average heart rate continued to improve and frequency of the heart block episodes started to decrease. On 10/05/2018, the patient was determined stable for discharge with recommendation to followup with primary care provider in 1 week. The patient was also recommended to followup with the street openings inspector in 1 week. OBJECTIVE: VITAL SIGNS: On day of discharge, temperature 98, pulse 88, respirations 19, blood pressure 130/78, pulse oximetry 96% on room air. LABORATORY DATA: On the day of discharge: WBC 7.1, hemoglobin 13, hematocrit 38.2, platelet count is 195. Sodium is 141, potassium 4.3, chloride 109, carbon dioxide 27, BUN 23, creatinine 1.02, GFR greater than 60, fasting glucose 112, calcium 9.2, magnesium 2.2. Urinalysis on 10/01/2018 is negative. Influenza is negative. Microbiology: Blood cultures on 10/01/2018 negative after five days times two sets. Respiratory panel on 10/01/2018 is negative. Sputum culture on 10/02/2018 showed yeast-like organism. IMAGING STUDIES: CT of the head without contrast demonstrated no CT evidence of acute intracranial pathology. CT of the chest with contrast demonstrated bronchial wall thickening and mucus plugging in the bilateral lower lobes. Volume loss, ground glass opacity and mild patchy consolidation in the bilateral lower lobes, probably due to combination of airway inflammation, pneumonia and atelectasis. Enlargement of central pulmonary artery, consistent with pulmonary hypertension. DISCHARGE MEDICATIONS: - amlodipine 10 mg by mouth daily - Mucinex 600 mg by mouth twice a day - vitamin E 400 units by mouth daily - Lumigan one drop OU at night - CoQ-10 100 mg by mouth daily - irbesartan/ hydrochlorothiazide 300/12.5 mg by mouth daily - omega 3 one tablet by mouth daily - spironolactone 25 mg by mouth daily Atenolol on hold. DISCHARGE INSTRUCTIONS: Discontinue line. Discharge home. Activity as tolerated. Low salt diet as tolerated. The patient should followup with his primary care provider in 1 week. The patient should followup with cardiology in 1 week. The patient understands that he should continue to hold his beta blockers. The patient should followup with cardiology for his cardiac arrhythmia evaluation. Discharge condition is fair. Discharge time was greater than 30 minutes.
== END 2018-10-05 13:36 | disposition home or self-care (01) | DRG 193 ==
LOC: M ED 23:32 → EDBD 23:32 → M ED INP 10-01 06:09 → M ICU 10-01 17:16 → M PCU 10-04 16:12
PROVIDERS: ADMIT Hospitalist; ATTEND Internal Medicine
DX: J18.9 Pneumonia, unspecified organism (principal); J96.01 Acute respiratory failure with hypoxia; J96.02 Acute respiratory failure with hypercapnia; Z68.41 Body mass index [BMI] 40.0-44.9, adult; E66.01 Morbid (severe) obesity due to excess calories; H40.9 Unspecified glaucoma; I11.0 Hypertensive heart disease with heart failure; I50.9 Heart failure, unspecified; I44.1 Atrioventricular block, second degree; I27.20 Pulmonary hypertension, unspecified; M19.90 Unspecified osteoarthritis, unspecified site; Z87.891 Personal history of nicotine dependence; Z79.899 Other long term (current) drug therapy; Z88.7 Allergy status to serum and vaccine

== ENCOUNTER 2021-03-06 16:14 | Emergency (ER) | payer MEDICARE ==
[~2021-03-06] VITALS: Ht 149.9 cm; Wt 105.5 kg
[~2021-03-06 16:14] MED LIST: AMLO1TAB25 PO; ATEN25TA PO; BIMA01SOL OU; CO Q100C10 PO; FISH7.5C PO; IRBE300T12 PO; IRBESAR/HCTZ; MUCI600T37 PO; NATU400T PO; SIMB1SUS OU; SPIR-10 PO; TIMOXEOPD OU; VITA200048 PO
[2021-03-06 17:14] LABS: BASO % 0.5 % (0.0-1.0); EOS # 0.1 10^3/uL (0.0-0.5); EOS % 1.5 % (0.0-3.0); HEMATOCRIT 42.8 % (42.0-52.0); HEMOGLOBIN 14.4 g/dl (13.5-17.5); LYMPH # 0.8 10^3/uL (1.5-5.0); MEAN CORPUSCULAR HEMOGLOBIN 33.2 pg (27.0-33.0); MEAN CORPUSCULAR HGB CONC 33.6 g/dl (32.0-36.5); MEAN CORPUSCULAR VOLUME 98.6 fl (80.0-96.0); MONO # 0.6 10^3/uL (0.0-0.8); MONO % 8.3 % (2.0-8.0); NEUTROPHILS # 5.7 10^3/uL (1.5-8.5); NEUTROPHILS % 77.9 % (36.0-66.0); PLATELET COUNT, AUTOMATED 189 10^3/uL (150-450); RED BLOOD COUNT 4.34 10^6/uL (4.30-6.10); WHITE BLOOD COUNT 7.4 10^3/uL (4.0-10.0)
--- NOTE | 2021-03-06 17:30 | REP ---
INDICATION: fall COMPARISON: None. TECHNIQUE: AP, lateral, bilateral oblique views of the right knee. FINDINGS: Prior knee replacement in satisfactory position and appearance. No acute fracture or dislocation. No effusion. IMPRESSION: No acute fracture or dislocation. <Electronically signed by Dean Lombardi > 03/06/21 [id number]
--- NOTE | 2021-03-06 17:33 | REP ---
INDICATION: fall COMPARISON: None. TECHNIQUE: Two views of the left shoulder FINDINGS: There is an acute oblique fracture involving the proximal humeral metadiaphysis with mild angulation. Underlying advanced osteoarthritic degenerative changes noted. IMPRESSION: Acute fracture of the proximal humeral metadiaphysis. <Electronically signed by Dean Lombardi > 03/06/21 [id number]
--- NOTE | 2021-03-06 17:34 | REP ---
INDICATION: fall COMPARISON: None. TECHNIQUE: Two views of the left humerus FINDINGS: There is an acute oblique mildly angulated fracture through proximal humeral metadiaphysis. Advanced degenerative changes to the shoulder. IMPRESSION: Acute oblique fracture of the proximal humeral metadiaphysis.. Advanced degenerative changes to the right shoulder. <Electronically signed by Dean Lombardi > 03/06/21 [id number]
[2021-03-06 17:38] LABS: BLOOD UREA NITROGEN 21 MG/DL (7-18); CALCIUM LEVEL 9.8 MG/DL (8.8-10.2); CARBON DIOXIDE LEVEL 27 MEQ/L (21-32); CHLORIDE LEVEL 109 MEQ/L (98-107); CREATININE FOR GFR 1.03 MG/DL (0.70-1.30); GLOMERULAR FILTRATION RATE > 60.0 (>35); GLUCOSE, FASTING 113 MG/DL (70-100); SODIUM LEVEL 141 MEQ/L (136-145)
--- NOTE | 2021-03-06 18:04 | REPVR ---
PROCEDURE INFORMATION: Exam: CT Maxillofacial Without Contrast Exam date and time: 03/06/2021 5:17 PM Age: 86 years old Clinical indication: Injury or trauma; Fall; Blunt trauma (contusions or hematomas); [place] TECHNIQUE: Imaging protocol: Computed tomography images of the face without contrast. Radiation optimization: All CT scans at this facility use at least one of these dose optimization techniques: automated exposure control; mA and/or kV adjustment per patient size (includes targeted exams where dose is matched to clinical indication); or iterative reconstruction. COMPARISON: CT Head without contrast 10/01/2018 1:00 AM FINDINGS: Orbital cavity: Metallic fragment in the preseptal midline on the right. Orbits otherwise unremarkable. Bones/joints: Chronic mildly depressed nasal fracture. No acute fracture. Paranasal sinuses: Normal. No air-fluid levels. Soft tissues: Left paranasal soft tissue swelling possibly posttraumatic. Vasculature: Atherosclerotic changes in the internal carotid arteries. IMPRESSION: 1. Chronic mildly depressed nasal fracture. No acute fracture. 2. Left paranasal soft tissue swelling possibly posttraumatic. Electronically signed by: Oc Corea On 03/06/2021 18:04:21 PM
--- NOTE | 2021-03-06 18:06 | REPVR ---
PROCEDURE INFORMATION: Exam: CT Head Without Contrast Exam date and time: 03/06/2021 5:17 PM Age: 86 years old Clinical indication: Injury or trauma; Fall; Blunt trauma (contusions or hematomas) TECHNIQUE: Imaging protocol: Computed tomography of the head without contrast. Radiation optimization: All CT scans at this facility use at least one of these dose optimization techniques: automated exposure control; mA and/or kV adjustment per patient size (includes targeted exams where dose is matched to clinical indication); or iterative reconstruction. COMPARISON: CT Head without contrast 10/01/2018 1:00 AM FINDINGS: Brain: There is moderate diffuse cerebellar atrophy. Bilateral basal ganglia calcifications. There is moderate age related parenchymal volume loss. White matter changes are demonstrated in the subcortical, centrum semiovale and periventricular white matter consistent with chronic age related small vessel ischemic changes. Cerebral ventricles: The degree of ventricular dilatation is normal for age and/or degree of atrophy present. Paranasal sinuses: Visualized sinuses are unremarkable. No fluid levels. Mastoid air cells: Visualized mastoid air cells are well aerated. Vasculature: Atherosclerotic calcifications are demonstrated in the intracranial carotid arteries bilaterally as well as in the vertebral basilar system. Bones/joints: Unremarkable. No acute fracture. Soft tissues: Unremarkable. IMPRESSION: 1. There is moderate diffuse cerebellar atrophy. 2. There is moderate age related parenchymal volume loss. White matter changes are demonstrated in the subcortical, centrum semiovale and periventricular white matter consistent with chronic age related small vessel ischemic changes. 3. The degree of ventricular dilatation is normal for age and/or degree of atrophy present. 4. No acute intracranial findings. Electronically signed by: Oc Corea On 03/06/2021 18:06:26 PM
--- NOTE | 2021-03-06 18:14 | REPVR ---
PROCEDURE INFORMATION: Exam: CT Cervical Spine Without Contrast Exam date and time: 03/06/2021 5:17 PM Age: 86 years old Clinical indication: Injury or trauma; Fall; Blunt trauma TECHNIQUE: Imaging protocol: Computed tomography images of the cervical spine without contrast. Radiation optimization: All CT scans at this facility use at least one of these dose optimization techniques: automated exposure control; mA and/or kV adjustment per patient size (includes targeted exams where dose is matched to clinical indication); or iterative reconstruction. COMPARISON: CT Chest with contrast 10/01/2018 4:16 AM FINDINGS: Bones/joints: See "Discs/Spinal canal/Neural foramina" finding. Discs/Spinal canal/Neural foramina: There are degenerative changes demonstrated in the atlantoaxial joint at C1-C2 with osteophytes and joint space narrowing. The transverse ligament thickened and calcified. Disc space narrowing from C3-C4 through C6-C7 with intervertebral osteophytes. Levoscoliosis. Mild retrolisthesis of C3 on C4 with mild anterolisthesis of C5 on C6, C6 and C7, and C7 on T1, findings likely related to chronic degenerative change. Disc osteophyte complexes throughout the cervical spine resulting in varying degrees of effacement of the ventral subarachnoid space. There is no cord impingement demonstrated. Mild foraminal narrowing on the left at C2, moderate bilateral foraminal narrowing at C3, severe bilateral foraminal narrowing at C4, severe foraminal narrowing on the left and moderate foraminal narrowing on the right at C5 [id number] bilateral foraminal narrowing at C6 secondary to osteophytic encroachment. Lungs: Lung apices are normal. Soft tissues: See "Discs/Spinal canal/Neural foramina" finding. IMPRESSION: 1. 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 2. No obvious fracture demonstrated. Electronically signed by: Oc Corea On 03/06/2021 18:14:07 PM
--- NOTE | 2021-03-06 19:19 | ECGEPIP ---
[facility] - ED Test Date: 2021-03-06 Pat Name: CONCHA KHAN Department: Room: - Gender: Male Pearl Maker: TAMI : 1935 Requested By: Mulugeta Colmenares Order Number: [id number] Reading MD: Mulugeta Colmenares Measurements Intervals [place] Rate: 86 P: 62 WI: 240 QRS: -48 QRSD: 100 T: 38 QT: 364 QTc: 435 Interpretive Statements Sinus rhythm with 1st degree AV block with premature atrial complexes LAD Left anterior fascicular block Moderate voltage criteria for LVH, may be normal variant ( R in aVL , [place] produ product ) Nonspecific ST T wave changes Delayed R wave progression cw 10/01/[address] t wave changes Electronically Signed on 03-06-2021 19:19:47 EDT by Mulugeta Colmenares
[2021-03-06 19:33] VITALS: BP 163/84
--- NOTE | 2021-03-07 06:24 | ED PDOC ---
Post-Departure Follow-Up charli prater and rhett faxed formal report of left shoulder and left humerus fi lm for fu Mulugeta Kohli MD Mar 07, 2021 06:24
== END 2021-03-06 19:36 | disposition home or self-care (01) ==
LOC: M ED 16:14
DX: S80.02XA Contusion of left knee, initial encounter (principal); S09.90XA Unspecified injury of head, initial encounter; S42.292A Other displaced fracture of upper end of left humerus, initial encounter for closed fracture; W18.39XA Other fall on same level, initial encounter; Y92.512 Supermarket, store or market as the place of occurrence of the external cause; I11.0 Hypertensive heart disease with heart failure; I50.9 Heart failure, unspecified; F41.9 Anxiety disorder, unspecified; H40.9 Unspecified glaucoma; Z79.899 Other long term (current) drug therapy; Z88.7 Allergy status to serum and vaccine

== ENCOUNTER → 2021-03-25 | Outpatient (CLI) | payer MEDICARE ==
--- NOTE | 2021-03-25 12:42 | REP ---
INDICATION: DISP FX LEFT HUMERUS. COMPARISON: 03/06/2021. TECHNIQUE: Two views left humerus. FINDINGS: There is an oblique fracture of the proximal humeral shaft with mild medial displacement and angulation. This may be slightly improved compared to the prior study. There is evidence of early healing callus formation at the fracture site. There is severe degenerative change at the glenohumeral joint in the form of joint space narrowing, subchondral sclerosis and spurring. There is flattening of the acetabulum and humeral head. IMPRESSION: Early healing of fracture of the proximal humeral shaft. <Electronically signed by Vj Nicole > 03/25/21 [id number]
== END ==
LOC: M SOG 11:36
PROVIDERS: ATTEND Orthopaedic Surgery Sports Medicine
DX: S42.292S Other displaced fracture of upper end of left humerus, sequela (principal)

== ENCOUNTER → 2021-04-22 | Outpatient (CLI) | payer MEDICARE ==
--- NOTE | 2021-04-22 10:07 | REP ---
INDICATION: HUM FX. COMPARISON: 03/25/2021 TECHNIQUE: Limited AP and lateral views of the left humerus FINDINGS: Oblique fracture of the proximal humeral metadiaphysis is again noted with increased adjacent callus formation suggesting slow healing. Underlying osteopenia as well as significant osteoarthritic degenerative changes involving the humeral head and shoulder again noted and unchanged. IMPRESSION: Slow healing of the oblique proximal humeral metadiaphyseal fracture. <Electronically signed by Dean Lombardi > 04/22/21 [id number]
== END ==
LOC: M SOG 09:14
PROVIDERS: ATTEND Orthopaedic Surgery Sports Medicine
DX: S42.292D Other displaced fracture of upper end of left humerus, subsequent encounter for fracture with routine healing (principal)

== ENCOUNTER → 2022-11-24 | Outpatient (CLI) | payer MEDICARE ==
[~2022-11-24] MED LIST changes: +FISH10005 PO; -FISH7.5C PO
[2022-11-24 15:32] LABS: BASO % 0.7 % (0.0-1.0); EOS # 0.1 10^3/uL (0.0-0.5); EOS % 2.2 % (0.0-3.0); HEMATOCRIT 40.7 % (42.0-52.0); HEMOGLOBIN 13.5 g/dl (13.5-17.5); LYMPH # 0.7 10^3/uL (1.5-5.0); LYMPH % 12.5 % (24.0-44.0); MEAN CORPUSCULAR HEMOGLOBIN 33.6 pg (27.0-33.0); MEAN CORPUSCULAR HGB CONC 33.2 g/dl (32.0-36.5); MEAN CORPUSCULAR VOLUME 101.2 fl (80.0-96.0); MONO # 0.6 10^3/uL (0.0-0.8); MONO % 9.8 % (2.0-8.0); NEUTROPHILS # 4.4 10^3/uL (1.5-8.5); NEUTROPHILS % 74.6 % (36.0-66.0); PLATELET COUNT, AUTOMATED 221 10^3/uL (150-450); RED BLOOD COUNT 4.02 10^6/uL (4.30-6.10); WHITE BLOOD COUNT 5.9 10^3/uL (4.0-10.0)
[2022-11-24 16:11] LABS: ERYTHROCYTE SEDIMENTATION RATE 34 mm/hr (0-20)
== END ==
LOC: M PLALAB 12:58
PROVIDERS: ATTEND Physician Assistant
DX: M25.562 Pain in left knee (principal); Z96.652 Presence of left artificial knee joint

== ENCOUNTER → 2022-12-14 | Outpatient (CLI) | payer MEDICARE | LOC: M PLAIMG 10:47 | PROVIDERS: ATTEND Physician Assistant | DX: Z96.652 Presence of left artificial knee joint (principal) ==

== ENCOUNTER → 2022-12-28 | Outpatient (CLI) | payer MEDICARE | LOC: M RAD 07:59 | PROVIDERS: ATTEND Physician Assistant | DX: Z96.652 Presence of left artificial knee joint (principal) | CPT/HCPCS: 78315; A9503 ==

== ENCOUNTER 2023-01-10 18:10 | Inpatient (IN) | payer MEDICARE ==
[~2023-01-10] VITALS: Ht 157.5 cm; Wt 98.4 kg
[2023-01-10] MEDS ORDERED: NITROGLYCERIN 2% OINT 1 GM *U/D* PKT TOP ONE (18:25)
[2023-01-10] MEDS ORDERED: FUROSEMIDE 100MG/10ML VIAL IV ONE (18:25)
[2023-01-10 18:54] LABS: BASO % 0.3 % (0.0-1.0); EOS % 0.1 % (0.0-3.0); HEMATOCRIT 35.6 % (42.0-52.0); HEMOGLOBIN 11.1 g/dl (13.5-17.5); LYMPH # 0.4 10^3/uL (1.5-5.0); LYMPH % 5.1 % (24.0-44.0); MEAN CORPUSCULAR HEMOGLOBIN 34.5 pg (27.0-33.0); MEAN CORPUSCULAR HGB CONC 31.2 g/dl (32.0-36.5); MEAN CORPUSCULAR VOLUME 110.6 fl (80.0-96.0); MONO # 0.7 10^3/uL (0.0-0.8); MONO % 8.9 % (2.0-8.0); NEUTROPHILS # 6.5 10^3/uL (1.5-8.5); NEUTROPHILS % 85.2 % (36.0-66.0); PLATELET COUNT, AUTOMATED 188 10^3/uL (150-450); RED BLOOD COUNT 3.22 10^6/uL (4.30-6.10); WHITE BLOOD COUNT 7.7 10^3/uL (4.0-10.0)
[2023-01-10 19:11] LABS: ALBUMIN 3.4 G/DL (3.2-5.2); ALKALINE PHOSPHATASE 70 U/L (46-116); ALT/SGPT 55 U/L (7.0-40); AST/SGOT 34 U/L (<34); BILIRUBIN,DIRECT 0.3 MG/DL (<0.4); BILIRUBIN,TOTAL 0.9 MG/DL (0.3-1.2); BLOOD UREA NITROGEN 57 MG/DL (9-23); CALCIUM LEVEL 9.1 MG/DL (8.3-10.6); CARBON DIOXIDE LEVEL 35 MMOL/L (20-31); CHLORIDE LEVEL 106 MMOL/L (98-107); CK-MB VALUE MASS 3.5 NG/ML (<3.6); CPK CREATINE PHOSPHOKINASE 56 U/L (46-171); CREATININE FOR GFR 1.48 MG/DL (0.70-1.30); GLOMERULAR FILTRATION RATE 47.6 (>35); GLUCOSE, FASTING 148 MG/DL (74-106); MAGNESIUM LEVEL 2.5 MG/DL (1.8-2.4); MB/CK RELATIVE INDEX 6.25 (< OR =4); POTASSIUM SERUM 5.2 MMOL/L (3.5-5.1); SODIUM LEVEL 140 MMOL/L (136-145); TOTAL PROTEIN 6.1 G/DL (5.7-8.2)
[2023-01-10 19:13] LABS: THYROXINE (T4) 5.1 UG/DL (4.5-10.9)
[2023-01-10 19:14] LABS: THYROID STIMULATING HORMONE 1.994 uIU/ML (0.55-4.78)
[2023-01-10 20:15] LABS: CK-MB VALUE MASS 4.8 NG/ML (<3.6)
[2023-01-10 20:16] LABS: MB/CK RELATIVE INDEX 9.05 (< OR =4)
[2023-01-10] MEDS ORDERED: ELIQ5TAB PO (22:02)
[2023-01-10] MEDS ORDERED: AMLO1TAB24 PO (22:02)
[2023-01-10] MEDS ORDERED: LOSA100T5 PO (22:02)
[2023-01-10] MEDS ORDERED: VITA-148 PO (22:02)
[2023-01-10] MEDS ORDERED: KETO2CR EXT (22:02)
[2023-01-10] MEDS ORDERED: ALBU8.5H INH (22:02)
[2023-01-10] MEDS ORDERED: METO25TA4 PO (22:02)
[2023-01-10] MEDS ORDERED: MUCI600T31 PO (22:02)
[2023-01-10] MEDS ORDERED: FURO20TA2 PO (22:02)
[2023-01-10] MEDS ORDERED: HOME MED LIST COMPLETE! XX SCH (22:05)
[2023-01-10] MEDS ORDERED: GLUCAGON INJ 1MG VIAL SC PRN (23:25)
[2023-01-10] MEDS ORDERED: DEXTROSE 50% 50ML SYRINGE IV PRN (23:25)
[2023-01-10] MEDS ORDERED: ALBUTEROL SULFATE 2.5MG/0.5ML INH NEB SOLN NEB PRN (23:25)
[2023-01-10] MEDS ORDERED: GLUCOSE 4GM CHEW TABLET PO PRN (23:25)
[2023-01-11] VITALS (22 sets, daily range): BP systolic 102–168; BP diastolic 55–129
[2023-01-11] MEDS ORDERED: ENOXAPARIN 120MG/0.8ML SYRINGE SC SCH
[2023-01-11 01:12] LABS: ABG BASE EXCESS 1.9 (-2.0-2.0); ABG HCO3 28.2 MMOL/L (22.0-26.0); ABG O2 SATURATION 97.2 % (95.0-99.0); ABG PARTIAL PRESSURE CO2 51.5 mmHg (35.0-45.0); ABG PARTIAL PRESSURE O2 95.5 mmHg (75.0-100.0); ABG STANDARD HCO3 26.2 MMOL/L. (22.0-26.0); ABG TOTAL CO2 29.8 MMOL/L (23.0-31.0); ABG pH (ARTERIAL) 7.356 UNITS (7.350-7.450)
[2023-01-11] MEDS: BRINZOLAMIDE 1% OPHTH SUSP (AZOPT) 10ML OU SCH ×2 (01:20→09:22)
[2023-01-11] MEDS: methylPREDNISolone 40MG 1ML VIAL IV SCH ×3 (01:20→17:03)
[2023-01-11] MEDS: IPRATROPIUM 0.5MG/ALBUTEROL 2.5MG INH SOL UD 3ML (DUONEB) NEB SCH ×4 (02:17→19:15)
[2023-01-11 05:09] LABS: HEMATOCRIT 34.6 % (42.0-52.0); HEMOGLOBIN 10.9 g/dl (13.5-17.5); MEAN CORPUSCULAR HEMOGLOBIN 33.6 pg (27.0-33.0); MEAN CORPUSCULAR HGB CONC 31.5 g/dl (32.0-36.5); MEAN CORPUSCULAR VOLUME 106.8 fl (80.0-96.0); PLATELET COUNT, AUTOMATED 159 10^3/uL (150-450); RED BLOOD COUNT 3.24 10^6/uL (4.30-6.10)
[2023-01-11 05:29] LABS: CALCIUM LEVEL 8.9 MG/DL (8.3-10.6); CREATININE FOR GFR 1.31 MG/DL (0.70-1.30); GLOMERULAR FILTRATION RATE 54.8 (>35); POTASSIUM SERUM 5.6 MMOL/L (3.5-5.1)
[2023-01-11 05:58] LABS: ABG HCO3 32.9 MMOL/L (22.0-26.0); ABG O2 SATURATION 98.1 % (95.0-99.0); ABG PARTIAL PRESSURE CO2 59.1 mmHg (35.0-45.0); ABG PARTIAL PRESSURE O2 117.7 mmHg (75.0-100.0); ABG STANDARD HCO3 29.9 MMOL/L. (22.0-26.0); ABG TOTAL CO2 34.7 MMOL/L (23.0-31.0); ABG pH (ARTERIAL) 7.363 UNITS (7.350-7.450)
[2023-01-11] MEDS: INSULIN LISPRO (NovoLOG) PER UNIT SC SCH ×4 (06:00→18:00)
[2023-01-11] MEDS ORDERED: SPIRONOLACTONE 25 MG TAB PO SCH (09:00)
[2023-01-11] MEDS: METOPROLOL TART 25 MG TABLET PO SCH ×2 (09:22→20:09)
[2023-01-11] MEDS ORDERED: FUROSEMIDE 40MG/4ML VIAL IV ONE (09:30)
[2023-01-11] MEDS: APIXABAN 5 MG TAB (ELIQUIS) PO SCH ×2 (12:21→20:08)
[2023-01-11] MEDS: FUROSEMIDE 40MG/4ML VIAL IV SCH (17:03)
[2023-01-11] MEDS: BRINZOLAMIDE 1% OPHTH SUSP (AZOPT) 10ML OS SCH ×2 (17:04→20:09)
[2023-01-12] VITALS (13 sets, daily range): BP systolic 123–145; BP diastolic 60–91
[2023-01-12] MEDS: methylPREDNISolone 40MG 1ML VIAL IV SCH (00:35)
[2023-01-12] MEDS: IPRATROPIUM 0.5MG/ALBUTEROL 2.5MG INH SOL UD 3ML (DUONEB) NEB SCH ×4 (01:19→20:31)
[2023-01-12 05:00] LABS: HEMATOCRIT 34.6 % (42.0-52.0); HEMOGLOBIN 10.9 g/dl (13.5-17.5); MEAN CORPUSCULAR HEMOGLOBIN 33.7 pg (27.0-33.0); MEAN CORPUSCULAR HGB CONC 31.5 g/dl (32.0-36.5); MEAN CORPUSCULAR VOLUME 107.1 fl (80.0-96.0); PLATELET COUNT, AUTOMATED 215 10^3/uL (150-450); RED BLOOD COUNT 3.23 10^6/uL (4.30-6.10); WHITE BLOOD COUNT 7.8 10^3/uL (4.0-10.0)
[2023-01-12 05:07] LABS: ABG HCO3 29.9 MMOL/L (22.0-26.0); ABG O2 SATURATION 97.3 % (95.0-99.0); ABG PARTIAL PRESSURE CO2 45.5 mmHg (35.0-45.0); ABG PARTIAL PRESSURE O2 97.8 mmHg (75.0-100.0); ABG TOTAL CO2 31.3 MMOL/L (23.0-31.0); ABG pH (ARTERIAL) 7.436 UNITS (7.350-7.450)
[2023-01-12 05:24] LABS: CALCIUM LEVEL 9.7 MG/DL (8.3-10.6); CREATININE FOR GFR 1.39 MG/DL (0.70-1.30); GLOMERULAR FILTRATION RATE 51.2 (>35); POTASSIUM SERUM 4.3 MMOL/L (3.5-5.1)
[2023-01-12] MEDS: INSULIN LISPRO (NovoLOG) PER UNIT SC SCH ×2 (05:29)
[2023-01-12] MEDS: FUROSEMIDE 40MG/4ML VIAL IV SCH ×3 (08:38→20:59)
[2023-01-12] MEDS: APIXABAN 5 MG TAB (ELIQUIS) PO SCH ×2 (08:39→20:59)
[2023-01-12] MEDS: BRINZOLAMIDE 1% OPHTH SUSP (AZOPT) 10ML OS SCH ×3 (08:39→21:00)
[2023-01-12] MEDS: METOPROLOL TART 25 MG TABLET PO SCH ×2 (08:40→20:59)
[2023-01-12] MEDS: guaiFENesin ER 600 MG TAB PO SCH ×2 (15:47→20:59)
[2023-01-13] VITALS (16 sets, daily range): BP systolic 110–133; BP diastolic 53–71; O2SAT 86–100
[2023-01-13] MEDS: IPRATROPIUM 0.5MG/ALBUTEROL 2.5MG INH SOL UD 3ML (DUONEB) NEB SCH ×4 (01:28→20:04)
[2023-01-13] MEDS: FUROSEMIDE 40MG/4ML VIAL IV SCH ×4 (03:24→22:49)
[2023-01-13] MEDS: BRINZOLAMIDE 1% OPHTH SUSP (AZOPT) 10ML OS SCH ×3 (08:32→21:00)
[2023-01-13] MEDS: APIXABAN 5 MG TAB (ELIQUIS) PO SCH ×2 (08:32→22:48)
[2023-01-13] MEDS: guaiFENesin ER 600 MG TAB PO SCH ×2 (08:32→22:48)
[2023-01-13] MEDS: METOPROLOL TART 25 MG TABLET PO SCH ×2 (08:32→22:48)
[2023-01-13 10:26] LABS: HEMATOCRIT 37.3 % (42.0-52.0); MEAN CORPUSCULAR HEMOGLOBIN 34.1 pg (27.0-33.0); MEAN CORPUSCULAR HGB CONC 32.2 g/dl (32.0-36.5); PLATELET COUNT, AUTOMATED 229 10^3/uL (150-450); RED BLOOD COUNT 3.52 10^6/uL (4.30-6.10); WHITE BLOOD COUNT 12.2 10^3/uL (4.0-10.0)
[2023-01-13 10:56] LABS: CALCIUM LEVEL 9.3 MG/DL (8.3-10.6); CREATININE FOR GFR 1.44 MG/DL (0.70-1.30); GLOMERULAR FILTRATION RATE 49.2 (>35)
[2023-01-14] MEDS: IPRATROPIUM 0.5MG/ALBUTEROL 2.5MG INH SOL UD 3ML (DUONEB) NEB SCH ×4 (02:39→19:12)
[2023-01-14] MEDS: FUROSEMIDE 40MG/4ML VIAL IV SCH (04:31)
[2023-01-14 06:00] VITALS: BP 136/61
[2023-01-14 08:13] LABS: HEMATOCRIT 35.7 % (42.0-52.0); HEMOGLOBIN 11.5 g/dl (13.5-17.5); MEAN CORPUSCULAR HEMOGLOBIN 33.7 pg (27.0-33.0); MEAN CORPUSCULAR HGB CONC 32.2 g/dl (32.0-36.5); MEAN CORPUSCULAR VOLUME 104.7 fl (80.0-96.0); PLATELET COUNT, AUTOMATED 197 10^3/uL (150-450); RED BLOOD COUNT 3.41 10^6/uL (4.30-6.10); WHITE BLOOD COUNT 8.2 10^3/uL (4.0-10.0)
[2023-01-14 08:48] LABS: ALBUMIN 3.3 G/DL (3.2-5.2); BLOOD UREA NITROGEN 76 MG/DL (9-23); CALCIUM LEVEL 9.9 MG/DL (8.3-10.6); CARBON DIOXIDE LEVEL > 40.0 MMOL/L (20-31); CHLORIDE LEVEL 99 MMOL/L (98-107); CREATININE FOR GFR 1.41 MG/DL (0.70-1.30); GLOMERULAR FILTRATION RATE 50.4 (>35); GLUCOSE, FASTING 88 MG/DL (74-106); PHOSPHORUS LEVEL 3.5 MG/DL (2.4-5.1); POTASSIUM SERUM 3.7 MMOL/L (3.5-5.1); SODIUM LEVEL 146 MMOL/L (136-145)
[2023-01-14 09:12] LABS: ERYTHROCYTE SEDIMENTATION RATE 12 mm/hr (0-20)
[2023-01-14] MEDS: guaiFENesin ER 600 MG TAB PO SCH ×2 (10:05→22:06)
[2023-01-14] MEDS: APIXABAN 5 MG TAB (ELIQUIS) PO SCH ×2 (10:05→22:06)
[2023-01-14] MEDS: METOPROLOL TART 25 MG TABLET PO SCH ×2 (10:06→22:06)
[2023-01-14] MEDS: BRINZOLAMIDE 1% OPHTH SUSP (AZOPT) 10ML OS SCH ×2 (10:09→22:05)
[2023-01-14 14:00] VITALS: BP 113/59
[2023-01-14 14:59] VITALS: O2SAT 92
[2023-01-14 22:00] VITALS: BP 124/61
[2023-01-14] MEDS: LATANOPROST 0.005% OPHTH SOLN 2.5 ML OS SCH (22:05)
[2023-01-15] MEDS: IPRATROPIUM 0.5MG/ALBUTEROL 2.5MG INH SOL UD 3ML (DUONEB) NEB SCH ×4 (01:17→19:56)
[2023-01-15 06:00] VITALS: BP 127/63
[2023-01-15 09:18] LABS: CALCIUM LEVEL 8.8 MG/DL (8.3-10.6); CREATININE FOR GFR 1.24 MG/DL (0.70-1.30); GLOMERULAR FILTRATION RATE 58.4 (>35); POTASSIUM SERUM 4.3 MMOL/L (3.5-5.1)
[2023-01-15 09:42] VITALS: BP 128/65
[2023-01-15] MEDS: BRINZOLAMIDE 1% OPHTH SUSP (AZOPT) 10ML OS SCH ×2 (09:43→22:35)
[2023-01-15] MEDS: guaiFENesin ER 600 MG TAB PO SCH ×2 (09:43→22:34)
[2023-01-15] MEDS: METOPROLOL TART 25 MG TABLET PO SCH ×2 (09:44→22:34)
[2023-01-15] MEDS: APIXABAN 5 MG TAB (ELIQUIS) PO SCH ×2 (09:44→22:34)
[2023-01-15] MEDS: FUROSEMIDE 40MG/4ML VIAL IV SCH ×2 (11:51→17:15)
[2023-01-15 11:59] LABS: C REACTIVE PROTEIN QUANTITATIV 2.9 MG/DL (<1.0)
[2023-01-15 12:48] LABS: BASO % 0.1 % (0.0-1.0); EOS # 0.1 10^3/uL (0.0-0.5); EOS % 0.8 % (0.0-3.0); HEMOGLOBIN 11.9 g/dl (13.5-17.5); LYMPH # 0.5 10^3/uL (1.5-5.0); LYMPH % 5.9 % (24.0-44.0); MEAN CORPUSCULAR HEMOGLOBIN 33.6 pg (27.0-33.0); MEAN CORPUSCULAR HGB CONC 32.2 g/dl (32.0-36.5); MEAN CORPUSCULAR VOLUME 104.5 fl (80.0-96.0); MONO # 0.8 10^3/uL (0.0-0.8); MONO % 10.2 % (2.0-8.0); NEUTROPHILS # 6.4 10^3/uL (1.5-8.5); NEUTROPHILS % 82.6 % (36.0-66.0); PLATELET COUNT, AUTOMATED 187 10^3/uL (150-450); RED BLOOD COUNT 3.54 10^6/uL (4.30-6.10); WHITE BLOOD COUNT 7.8 10^3/uL (4.0-10.0)
[2023-01-15 12:58] LABS: ERYTHROCYTE SEDIMENTATION RATE 27 mm/hr (0-20)
[2023-01-15 14:00] VITALS: BP 135/74
[2023-01-15 15:17] VITALS: O2SAT 96
[2023-01-15] MEDS: ACETAMINOPHEN TAB 650MG DOSE (2X325MG) PO PRN (18:53)
[2023-01-15] MEDS ORDERED: BISACODYL 5MG TAB PO PRN (18:55)
[2023-01-15] MEDS ORDERED: ACETAMINOPHEN 500 MG TAB PO ONE (18:55)
[2023-01-15] MEDS ORDERED: BISACODYL 5MG TAB PO ONE (18:55)
[2023-01-15 20:30] VITALS: BP 118/63
[2023-01-15] MEDS: LIDOCAINE 5% (LIDODERM) PATCH TD SCH (21:00)
[2023-01-15] MEDS: SENOKOT S TAB PO SCH (22:34)
[2023-01-15] MEDS: LATANOPROST 0.005% OPHTH SOLN 2.5 ML OS SCH (22:35)
[2023-01-16] MEDS: IPRATROPIUM 0.5MG/ALBUTEROL 2.5MG INH SOL UD 3ML (DUONEB) NEB SCH ×4 (02:38→19:27)
[2023-01-16 06:00] VITALS: BP 125/69
[2023-01-16 06:34] LABS: ALBUMIN 2.8 G/DL (3.2-5.2); CALCIUM LEVEL 8.7 MG/DL (8.3-10.6); CREATININE FOR GFR 1.78 MG/DL (0.70-1.30); GLOMERULAR FILTRATION RATE 38.5 (>35); PHOSPHORUS LEVEL 4.7 MG/DL (2.4-5.1); POTASSIUM SERUM 3.7 MMOL/L (3.5-5.1)
[2023-01-16 08:35] VITALS: O2SAT 90
[2023-01-16] MEDS: BRINZOLAMIDE 1% OPHTH SUSP (AZOPT) 10ML OS SCH ×2 (10:18→21:28)
[2023-01-16] MEDS: guaiFENesin ER 600 MG TAB PO SCH ×2 (10:19→21:26)
[2023-01-16] MEDS: METOPROLOL TART 25 MG TABLET PO SCH ×2 (10:19→21:00)
[2023-01-16] MEDS: APIXABAN 5 MG TAB (ELIQUIS) PO SCH ×2 (10:19→21:26)
[2023-01-16] MEDS: SENOKOT S TAB PO SCH ×2 (10:19→21:26)
[2023-01-16] MEDS: POTASSIUM CHLORIDE 10MEQ SR TABLET PO SCH ×2 (10:22→21:26)
[2023-01-16] MEDS: ACETAMINOPHEN TAB 650MG DOSE (2X325MG) PO PRN ×3 (10:23→22:36)
[2023-01-16 12:46] VITALS: BP 100/63
[2023-01-16] MEDS: FUROSEMIDE injection 250 MG in D5W 225 ML IV SCH (13:18)
[2023-01-16 13:32] VITALS: O2SAT 94
[2023-01-16 14:00] VITALS: BP 100/62
[2023-01-16 18:15] VITALS: BP 103/66
[2023-01-16] MEDS: LIDOCAINE 5% (LIDODERM) PATCH TD SCH (21:27)
[2023-01-16] MEDS: LATANOPROST 0.005% OPHTH SOLN 2.5 ML OS SCH (21:27)
[2023-01-17] VITALS (8 sets, daily range): BP systolic 106–144; BP diastolic 57–75; O2SAT 95–97
[2023-01-17] MEDS: IPRATROPIUM 0.5MG/ALBUTEROL 2.5MG INH SOL UD 3ML (DUONEB) NEB SCH ×4 (01:02→19:40)
[2023-01-17 08:31] LABS: HEMATOCRIT 35.1 % (42.0-52.0); HEMOGLOBIN 11.5 g/dl (13.5-17.5); MEAN CORPUSCULAR HEMOGLOBIN 33.8 pg (27.0-33.0); MEAN CORPUSCULAR HGB CONC 32.8 g/dl (32.0-36.5); MEAN CORPUSCULAR VOLUME 103.2 fl (80.0-96.0); PLATELET COUNT, AUTOMATED 165 10^3/uL (150-450); WHITE BLOOD COUNT 8.7 10^3/uL (4.0-10.0)
[2023-01-17] MEDS: SENOKOT S TAB PO SCH ×2 (08:56→21:21)
[2023-01-17] MEDS: guaiFENesin ER 600 MG TAB PO SCH ×2 (08:56→21:21)
[2023-01-17] MEDS: APIXABAN 5 MG TAB (ELIQUIS) PO SCH ×2 (08:56→21:21)
[2023-01-17] MEDS: POLYVINYL ALCOHOL OPHTH SOLN 15ML (LIQUITEARS) OU PRN (08:57)
[2023-01-17] MEDS: BRINZOLAMIDE 1% OPHTH SUSP (AZOPT) 10ML OS SCH ×2 (08:57→21:22)
[2023-01-17] MEDS: METOPROLOL TART 25 MG TABLET PO SCH ×2 (08:58→21:00)
[2023-01-17 09:03] LABS: CALCIUM LEVEL 9.3 MG/DL (8.3-10.6); CREATININE FOR GFR 2.18 MG/DL (0.70-1.30); GLOMERULAR FILTRATION RATE 30.5 (>35); POTASSIUM SERUM 3.8 MMOL/L (3.5-5.1)
[2023-01-17] MEDS: POTASSIUM CHLORIDE 10MEQ SR TABLET PO SCH ×2 (11:51→21:21)
[2023-01-17] MEDS: FUROSEMIDE injection 250 MG in D5W 225 ML IV SCH (11:51)
[2023-01-17] MEDS: LIDOCAINE 5% (LIDODERM) PATCH TD SCH (21:00)
[2023-01-17] MEDS: LATANOPROST 0.005% OPHTH SOLN 2.5 ML OS SCH (21:22)
[2023-01-18] VITALS (7 sets, daily range): BP systolic 103–128; BP diastolic 57–73; O2SAT 92–97
[2023-01-18] MEDS: IPRATROPIUM 0.5MG/ALBUTEROL 2.5MG INH SOL UD 3ML (DUONEB) NEB SCH ×4 (01:28→21:18)
[2023-01-18 06:26] LABS: HEMATOCRIT 32.3 % (42.0-52.0); HEMOGLOBIN 10.7 g/dl (13.5-17.5); MEAN CORPUSCULAR HGB CONC 33.1 g/dl (32.0-36.5); MEAN CORPUSCULAR VOLUME 102.5 fl (80.0-96.0); PLATELET COUNT, AUTOMATED 165 10^3/uL (150-450); RED BLOOD COUNT 3.15 10^6/uL (4.30-6.10); WHITE BLOOD COUNT 7.9 10^3/uL (4.0-10.0)
[2023-01-18 06:49] LABS: CALCIUM LEVEL 9.6 MG/DL (8.3-10.6); CREATININE FOR GFR 1.71 MG/DL (0.70-1.30); GLOMERULAR FILTRATION RATE 40.3 (>35); POTASSIUM SERUM 3.7 MMOL/L (3.5-5.1)
[2023-01-18] MEDS: APIXABAN 5 MG TAB (ELIQUIS) PO SCH ×2 (08:08→21:07)
[2023-01-18] MEDS: guaiFENesin ER 600 MG TAB PO SCH ×2 (08:08→21:05)
[2023-01-18] MEDS: SENOKOT S TAB PO SCH ×2 (08:08→21:07)
[2023-01-18] MEDS: METOPROLOL TART 25 MG TABLET PO SCH ×2 (08:08→21:06)
[2023-01-18] MEDS: BRINZOLAMIDE 1% OPHTH SUSP (AZOPT) 10ML OS SCH ×2 (08:09→21:07)
[2023-01-18] MEDS: FUROSEMIDE injection 250 MG in D5W 225 ML IV SCH (12:28)
[2023-01-18] MEDS: POTASSIUM CHLORIDE 10MEQ SR TABLET PO SCH ×2 (13:06→21:04)
[2023-01-18] MEDS: cefTRIAXone SOD 1 GM in D5W MINI-BAG PLUS 50 ML IV SCH (14:26)
[2023-01-18] MEDS: LIDOCAINE 5% (LIDODERM) PATCH TD SCH (21:00)
[2023-01-18] MEDS: ACETAMINOPHEN TAB 650MG DOSE (2X325MG) PO PRN (21:06)
[2023-01-18] MEDS: LATANOPROST 0.005% OPHTH SOLN 2.5 ML OS SCH (21:07)
[2023-01-19] VITALS (7 sets, daily range): BP systolic 105–142; BP diastolic 64–86; O2SAT 92–97
[2023-01-19] MEDS: IPRATROPIUM 0.5MG/ALBUTEROL 2.5MG INH SOL UD 3ML (DUONEB) NEB SCH ×4 (03:09→21:23)
[2023-01-19 06:21] LABS: HEMATOCRIT 32.2 % (42.0-52.0); HEMOGLOBIN 10.6 g/dl (13.5-17.5); MEAN CORPUSCULAR HEMOGLOBIN 33.9 pg (27.0-33.0); MEAN CORPUSCULAR HGB CONC 32.9 g/dl (32.0-36.5); MEAN CORPUSCULAR VOLUME 102.9 fl (80.0-96.0); PLATELET COUNT, AUTOMATED 166 10^3/uL (150-450); RED BLOOD COUNT 3.13 10^6/uL (4.30-6.10); WHITE BLOOD COUNT 8.1 10^3/uL (4.0-10.0)
[2023-01-19 06:51] LABS: CALCIUM LEVEL 9.7 MG/DL (8.3-10.6); CREATININE FOR GFR 1.76 MG/DL (0.70-1.30); POTASSIUM SERUM 3.6 MMOL/L (3.5-5.1)
[2023-01-19] MEDS: METOPROLOL TART 25 MG TABLET PO SCH ×2 (09:00→20:38)
[2023-01-19] MEDS: SENOKOT S TAB PO SCH ×2 (09:10→20:38)
[2023-01-19] MEDS: guaiFENesin ER 600 MG TAB PO SCH ×2 (09:10→20:37)
[2023-01-19] MEDS: APIXABAN 5 MG TAB (ELIQUIS) PO SCH (09:10)
[2023-01-19] MEDS: FUROSEMIDE 80 MG TAB PO SCH ×2 (09:16→09:50)
[2023-01-19] MEDS: BRINZOLAMIDE 1% OPHTH SUSP (AZOPT) 10ML OS SCH ×2 (09:17→20:35)
[2023-01-19 11:00] LABS: ABG BASE EXCESS 9.7 (-2.0-2.0); ABG HCO3 34.9 MMOL/L (22.0-26.0); ABG O2 SATURATION 98.2 % (95.0-99.0); ABG PARTIAL PRESSURE CO2 49.8 mmHg (35.0-45.0); ABG PARTIAL PRESSURE O2 118.4 mmHg (75.0-100.0); ABG STANDARD HCO3 33.4 MMOL/L. (22.0-26.0); ABG TOTAL CO2 36.4 MMOL/L (23.0-31.0); ABG pH (ARTERIAL) 7.463 UNITS (7.350-7.450)
[2023-01-19] MEDS: POTASSIUM CHLORIDE 10MEQ SR TABLET PO SCH (11:08)
[2023-01-19] MEDS: cefTRIAXone SOD 1 GM in D5W MINI-BAG PLUS 50 ML IV SCH (14:25)
[2023-01-19] MEDS: LATANOPROST 0.005% OPHTH SOLN 2.5 ML OS SCH (20:35)
[2023-01-19] MEDS: LIDOCAINE 5% (LIDODERM) PATCH TD SCH (20:35)
[2023-01-19] MEDS: APIXABAN 2.5 MG TAB (ELIQUIS) PO SCH (20:37)
[2023-01-20] MEDS: IPRATROPIUM 0.5MG/ALBUTEROL 2.5MG INH SOL UD 3ML (DUONEB) NEB SCH ×4 (02:35→20:33)
[2023-01-20 06:00] VITALS: BP 110/65
[2023-01-20 06:33] LABS: HEMATOCRIT 33.6 % (42.0-52.0); HEMOGLOBIN 11.1 g/dl (13.5-17.5); MEAN CORPUSCULAR VOLUME 103.1 fl (80.0-96.0); PLATELET COUNT, AUTOMATED 169 10^3/uL (150-450); RED BLOOD COUNT 3.26 10^6/uL (4.30-6.10)
[2023-01-20 07:04] LABS: CALCIUM LEVEL 8.9 MG/DL (8.3-10.6); CREATININE FOR GFR 1.43 MG/DL (0.70-1.30); GLOMERULAR FILTRATION RATE 49.6 (>35); POTASSIUM SERUM 3.6 MMOL/L (3.5-5.1)
[2023-01-20] MEDS: SENOKOT S TAB PO SCH ×2 (07:50→20:19)
[2023-01-20 09:00] VITALS: O2SAT 95
[2023-01-20 09:25] VITALS: BP 117/67
[2023-01-20] MEDS: METOPROLOL TART 25 MG TABLET PO SCH ×2 (09:26→20:18)
[2023-01-20] MEDS: BRINZOLAMIDE 1% OPHTH SUSP (AZOPT) 10ML OS SCH ×2 (09:26→19:45)
[2023-01-20] MEDS: POTASSIUM CHLORIDE 10MEQ SR TABLET PO SCH (09:26)
[2023-01-20] MEDS: guaiFENesin ER 600 MG TAB PO SCH ×2 (09:26→20:19)
[2023-01-20] MEDS: APIXABAN 2.5 MG TAB (ELIQUIS) PO SCH ×2 (09:26→20:18)
[2023-01-20] MEDS: FUROSEMIDE 80 MG TAB PO SCH (10:14)
[2023-01-20] MEDS: CEFDINIR 300 MG CAP (OMNICEF) PO SCH ×2 (13:37→20:19)
[2023-01-20 14:00] VITALS: BP 123/67
[2023-01-20] MEDS ORDERED: TAMSULOSIN 0.4 MG CAP PO ONE (18:55)
[2023-01-20] MEDS: LATANOPROST 0.005% OPHTH SOLN 2.5 ML OS SCH (20:19)
[2023-01-20] MEDS: LIDOCAINE 5% (LIDODERM) PATCH TD SCH (20:19)
[2023-01-20 22:00] VITALS: BP 122/68
[2023-01-20 23:44] VITALS: O2SAT 98
[2023-01-21] MEDS: IPRATROPIUM 0.5MG/ALBUTEROL 2.5MG INH SOL UD 3ML (DUONEB) NEB SCH ×2 (01:53→08:07)
[2023-01-21 05:38] VITALS: BP 115/67
[2023-01-21 05:51] LABS: HEMATOCRIT 32.5 % (42.0-52.0); HEMOGLOBIN 10.6 g/dl (13.5-17.5); MEAN CORPUSCULAR HEMOGLOBIN 33.9 pg (27.0-33.0); MEAN CORPUSCULAR HGB CONC 32.6 g/dl (32.0-36.5); MEAN CORPUSCULAR VOLUME 103.8 fl (80.0-96.0); PLATELET COUNT, AUTOMATED 184 10^3/uL (150-450); RED BLOOD COUNT 3.13 10^6/uL (4.30-6.10); WHITE BLOOD COUNT 5.8 10^3/uL (4.0-10.0)
[2023-01-21 06:13] LABS: CALCIUM LEVEL 9.2 MG/DL (8.3-10.6); CREATININE FOR GFR 1.34 MG/DL (0.70-1.30); GLOMERULAR FILTRATION RATE 53.4 (>35); POTASSIUM SERUM 3.5 MMOL/L (3.5-5.1)
[2023-01-21] MEDS: FUROSEMIDE 80 MG TAB PO SCH (09:00)
[2023-01-21] MEDS: METOPROLOL TART 25 MG TABLET PO SCH ×2 (09:00→21:02)
[2023-01-21 09:52] VITALS: BP 96/52
[2023-01-21] MEDS: guaiFENesin ER 600 MG TAB PO SCH ×2 (09:55→21:01)
[2023-01-21] MEDS: CEFDINIR 300 MG CAP (OMNICEF) PO SCH ×2 (09:55→21:02)
[2023-01-21] MEDS: SENOKOT S TAB PO SCH ×2 (09:56→20:55)
[2023-01-21] MEDS: APIXABAN 2.5 MG TAB (ELIQUIS) PO SCH ×2 (09:56→21:01)
[2023-01-21] MEDS: POTASSIUM CHLORIDE 10MEQ SR TABLET PO SCH (09:56)
[2023-01-21] MEDS: POLYVINYL ALCOHOL OPHTH SOLN 15ML (LIQUITEARS) OU PRN (09:57)
[2023-01-21] MEDS: BRINZOLAMIDE 1% OPHTH SUSP (AZOPT) 10ML OS SCH ×2 (09:57→20:54)
[2023-01-21 14:00] VITALS: BP 119/68
[2023-01-21] MEDS: ALBUTEROL SULFATE 2.5MG/0.5ML INH NEB SOLN NEB SCH ×2 (14:16→23:34)
[2023-01-21 16:00] VITALS: O2SAT 92
[2023-01-21 20:00] VITALS: BP 119/69
[2023-01-21] MEDS: LIDOCAINE 5% (LIDODERM) PATCH TD SCH (20:57)
[2023-01-21] MEDS: TAMSULOSIN 0.4 MG CAP PO SCH (21:01)
[2023-01-21] MEDS: LATANOPROST 0.005% OPHTH SOLN 2.5 ML OS SCH (21:02)
[2023-01-21] MEDS: ACETAMINOPHEN TAB 650MG DOSE (2X325MG) PO PRN (21:03)
[2023-01-21 23:51] VITALS: O2SAT 93
[2023-01-22] VITALS (8 sets, daily range): BP systolic 101–126; BP diastolic 58–76; O2SAT 92–97
[2023-01-22] MEDS: ACETAMINOPHEN TAB 650MG DOSE (2X325MG) PO PRN ×4 (01:01→21:01)
[2023-01-22 02:08] LABS: APPEARANCE, URINE CLEAR (CLEAR); BACTERIA, URINE AUTO NEGATIVE (NEGATIVE); BILIRUBIN, URINE AUTO NEGATIVE (NEGATIVE); BLOOD, URINE BLOOD 2+ (NEGATIVE); COLOR, URINE YELLOW (YELLOW); GLUCOSE, URINE (UA) AUTO NEGATIVE (NEGATIVE); KETONE, URINE AUTO TRACE mg/dL (NEGATIVE); LEUKOCYTE ESTERASE, URINE AUTO 3+ (NEGATIVE); NITRITE, URINE AUTO NEGATIVE (NEGATIVE); PROTEIN, URINE AUTO NEGATIVE (NEGATIVE); RBC, URINE AUTO 59 /HPF (0-3); SPECIFIC GRAVITY URINE AUTO 1.017 (1.002-1.035); SQUAMOUS EPITHELIAL CELL UR AU 0 /HPF (0-6); UROBILINOGEN, URINE AUTO 0.2 mg/dL (0.0-2.0); WBC, URINE AUTO 60 /HPF (0-3)
[2023-01-22 05:20] LABS: HEMATOCRIT 32.3 % (42.0-52.0); HEMOGLOBIN 10.6 g/dl (13.5-17.5); MEAN CORPUSCULAR HEMOGLOBIN 33.5 pg (27.0-33.0); MEAN CORPUSCULAR HGB CONC 32.8 g/dl (32.0-36.5); MEAN CORPUSCULAR VOLUME 102.2 fl (80.0-96.0); PLATELET COUNT, AUTOMATED 196 10^3/uL (150-450); RED BLOOD COUNT 3.16 10^6/uL (4.30-6.10); WHITE BLOOD COUNT 6.1 10^3/uL (4.0-10.0)
[2023-01-22 05:51] LABS: CALCIUM LEVEL 8.5 MG/DL (8.3-10.6); CREATININE FOR GFR 1.24 MG/DL (0.70-1.30); GLOMERULAR FILTRATION RATE 58.4 (>35); POTASSIUM SERUM 3.8 MMOL/L (3.5-5.1)
[2023-01-22] MEDS: ALBUTEROL SULFATE 2.5MG/0.5ML INH NEB SOLN NEB SCH ×3 (08:02→23:29)
[2023-01-22] MEDS: FUROSEMIDE 80 MG TAB PO SCH (09:00)
[2023-01-22] MEDS: METOPROLOL TART 25 MG TABLET PO SCH ×2 (09:00→21:00)
[2023-01-22] MEDS: SENOKOT S TAB PO SCH ×2 (09:00→21:00)
[2023-01-22] MEDS: POTASSIUM CHLORIDE 10MEQ SR TABLET PO SCH (10:19)
[2023-01-22] MEDS: APIXABAN 2.5 MG TAB (ELIQUIS) PO SCH ×2 (10:19→20:59)
[2023-01-22] MEDS: guaiFENesin ER 600 MG TAB PO SCH ×2 (10:19→21:00)
[2023-01-22] MEDS: BRINZOLAMIDE 1% OPHTH SUSP (AZOPT) 10ML OS SCH ×2 (10:20→21:00)
[2023-01-22] MEDS: CEFDINIR 300 MG CAP (OMNICEF) PO SCH ×2 (10:20→21:00)
[2023-01-22] MEDS: POLYVINYL ALCOHOL OPHTH SOLN 15ML (LIQUITEARS) OU PRN (10:20)
[2023-01-22] MEDS: TAMSULOSIN 0.4 MG CAP PO SCH (20:59)
[2023-01-22] MEDS: LATANOPROST 0.005% OPHTH SOLN 2.5 ML OS SCH (21:00)
[2023-01-22] MEDS: LIDOCAINE 5% (LIDODERM) PATCH TD SCH (21:00)
[2023-01-23 03:40] VITALS: O2SAT 91
[2023-01-23 05:56] VITALS: BP 121/72
[2023-01-23 06:08] LABS: HEMATOCRIT 32.4 % (42.0-52.0); HEMOGLOBIN 10.7 g/dl (13.5-17.5); MEAN CORPUSCULAR HEMOGLOBIN 33.4 pg (27.0-33.0); MEAN CORPUSCULAR VOLUME 101.3 fl (80.0-96.0); PLATELET COUNT, AUTOMATED 205 10^3/uL (150-450); WHITE BLOOD COUNT 5.7 10^3/uL (4.0-10.0)
[2023-01-23 06:44] LABS: BLOOD UREA NITROGEN 40 MG/DL (9-23); CALCIUM LEVEL 8.6 MG/DL (8.3-10.6); CARBON DIOXIDE LEVEL 30 MMOL/L (20-31); CHLORIDE LEVEL 104 MMOL/L (98-107); CREATININE FOR GFR 1.14 MG/DL (0.70-1.30); GLOMERULAR FILTRATION RATE > 60.0 (>35); GLUCOSE, FASTING 97 MG/DL (74-106); POTASSIUM SERUM 3.5 MMOL/L (3.5-5.1); SODIUM LEVEL 138 MMOL/L (136-145)
[2023-01-23] MEDS: ALBUTEROL SULFATE 2.5MG/0.5ML INH NEB SOLN NEB SCH (07:35)
[2023-01-23] MEDS: APIXABAN 2.5 MG TAB (ELIQUIS) PO SCH (09:12)
[2023-01-23] MEDS: guaiFENesin ER 600 MG TAB PO SCH (09:12)
[2023-01-23] MEDS: CEFDINIR 300 MG CAP (OMNICEF) PO SCH (09:12)
[2023-01-23] MEDS: POTASSIUM CHLORIDE 10MEQ SR TABLET PO SCH (09:12)
[2023-01-23] MEDS: FUROSEMIDE 80 MG TAB PO SCH (09:12)
[2023-01-23 09:13] VITALS: BP 121/72
[2023-01-23] MEDS: METOPROLOL TART 25 MG TABLET PO SCH (09:13)
[2023-01-23] MEDS: BRINZOLAMIDE 1% OPHTH SUSP (AZOPT) 10ML OS SCH (09:13)
[2023-01-23] MEDS: SENOKOT S TAB PO SCH (09:13)
[2023-01-23] MEDS ORDERED: FURO80TA2 PO (10:53)
[2023-01-23] MEDS ORDERED: FLOM0.4C39 PO (10:53)
[2023-01-23] MEDS ORDERED: CEFD300CAP PO (10:53)
[2023-01-23] MEDS ORDERED: SENN-52 PO (10:53)
[2023-01-23] MEDS ORDERED: ACET650T61 PO (10:53)
[2023-01-23] MEDS: ACETAMINOPHEN TAB 650MG DOSE (2X325MG) PO PRN (12:16)
[2023-01-24] MEDS ORDERED: METO25TA PO (17:03)
== END 2023-01-23 12:27 | disposition home health service (06) | DRG 291 ==
LOC: EDBD 18:10 → M ED 18:10 → M ED INP 23:14 → M ICU 01-11 00:12 → M PCU 01-12 12:16 → M MSPAV 01-13 18:44 → UNDODISIN 01-13 18:50
PROVIDERS: ADMIT Internal Medicine; ATTEND Internal Medicine Nephrology
PROC: B246ZZZ Ultrasonography of Right and Left Heart (ICD-10-PCS; principal; 2023-01-11)
DX: I13.0 Hypertensive heart and chronic kidney disease with heart failure and stage 1 through stage 4 chronic kidney disease, or unspecified chronic kidney disease (principal); J96.21 Acute and chronic respiratory failure with hypoxia; J96.02 Acute respiratory failure with hypercapnia; I50.33 Acute on chronic diastolic (congestive) heart failure; J15.0 Pneumonia due to Klebsiella pneumoniae; J45.901 Unspecified asthma with (acute) exacerbation; G93.40 Encephalopathy, unspecified; N17.9 Acute kidney failure, unspecified; E66.2 Morbid (severe) obesity with alveolar hypoventilation; Z68.41 Body mass index [BMI] 40.0-44.9, adult; E87.4 Mixed disorder of acid-base balance; J44.0 Chronic obstructive pulmonary disease with (acute) lower respiratory infection; I48.20 Chronic atrial fibrillation, unspecified; E87.0 Hyperosmolality and hypernatremia; E87.1 Hypo-osmolality and hyponatremia; R04.2 Hemoptysis; Z66 Do not resuscitate; N18.30 Chronic kidney disease, stage 3 unspecified; E11.22 Type 2 diabetes mellitus with diabetic chronic kidney disease; E87.5 Hyperkalemia; D64.9 Anemia, unspecified; R26.89 Other abnormalities of gait and mobility; I27.29 Other secondary pulmonary hypertension; R33.9 Retention of urine, unspecified; N40.1 Benign prostatic hyperplasia with lower urinary tract symptoms; H40.9 Unspecified glaucoma; Z79.01 Long term (current) use of anticoagulants; Z79.899 Other long term (current) drug therapy; Z96.653 Presence of artificial knee joint, bilateral; Z99.81 Dependence on supplemental oxygen; Z87.891 Personal history of nicotine dependence